=== PATIENT | female | born 1960 | race Caucasian/White ===

== ENCOUNTER → 2016-10-24 | Outpatient (CLI) | payer BC ==
[~2016-10-24] VITALS: Ht 165.1 cm; Wt 68.9 kg
[~2016-10-24] MED LIST: ACID CONTROL150 MG; ACID CONTROL20 MG; CELEXA20 MG PO; CIPROFLOXACIN500 M3 PO; FLEXERIL PO; FLONASE 0.05%50 MCG NASAL; HYDROCODON-ACE1 EAC5 PO; HYDROCODONE-AP1 EAC6 PO; LAMISIL250 MG PO; MOBIC15 MG; MOBIC15 MG PO; NORCO 10-325 T1 EACH PO; NORCO 5-325 TA1 EACH PO; PEPCID20 MG PO; TUSSIONEX PENN473 ML PO; ZANAFLEX4 MG PO; ZOFRAN ODT4 MG PO; ZOFRAN4 MG PO; ZPAK PO; [UNRECOGNIZED DRUG - REMARK]
--- NOTE | ~2016-10-24 | HPC ---
[facility] [address] [place] [address] PAIN MANAGEMENT CONSULTATION Name: VON ALVARENGA Room #: REG [facility] [id number] Admission: 10/24/16 Attend Phys: Antonio Hicks MD Discharge: Date of : 60 Report #: [id number] THIS REPORT FOR: //name// CC: Seamus Coreas DO Antonio Hicks DATE OF SERVICE: 10/24/2016 DATE OF REGISTRATION: 10/24/2016 Followup visit for chronic back pain. The patient returns to pain clinic today for renewal of medication. I provided her under terms of an opioid agreement with a small amount of hydrocodone 10/325. She takes an average of 2 tablets per day. 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. Without it she does not feel that she would be able to do so. The pain in her back becomes too incapacitating. She has no significant side effects. She reports that she safeguards her medication carefully and we had a discussion again today about the opioid crisis in [place]. Today, she reports her pain without medication is an 8/10, chronic tingling, aching pressure across her low back. She also has pain in her upper back and into her right arm. She is able to reduce this substantially with the use of her medication. Blood pressure is 131/79, heart rate 60, respirations 15. She is 5 feet 5 inches with a BMI of 25.3. Her affect is pleasant. She has tenderness throughout the lumbosacral spine. She has some mild limitations in flexion, extension, rotational movements. Straight leg raising reproduces an L5 distribution pain once again at the knees. Sensation and reflexes are normal. IMPRESSION: 1. Degenerative disk disease of the lumbar spine, L4-L5. Lumbar radiculopathy. 2. Lumbar spondylosis with axial back pain. 3. Management of high risk medication. PLAN: 1. Urine drug screen was performed today. It has been sometimes. This will check that. 2. We reviewed the terms of our opioid agreement. 3. I provided her with 3 months' worth of medication with important discussion [address] [address] PAIN MANAGEMENT CONSULTATION Name: KATIANA ALVARENGABetina Coates Room #: REG KIRAN Castañeda#: [id number] Admission: 10/24/16 Attend Phys: Antonio Hicks MD Discharge: Date of : 60 Report #: [id number] about safeguarding medications to make sure that there is no diversion. 4. Follow up with the pain clinic as needed. <ELECTRONICALLY SIGNED> By: Antonio Hicks MD 10/26/16 1329 1243 1355 Antonio Hicks MD /nt
[2016-10-24 11:02] VITALS: BP 131/79
[2016-10-28 15:05] LABS: EER PAIN MGT INTERP FINAL (())
== END ==
LOC: PAIN 07:27
PROVIDERS: Anesthesiology Pain Medicine
DX: M47.26 Other spondylosis with radiculopathy, lumbar region (principal)

== ENCOUNTER → 2016-11-12 | Outpatient (CLI) | payer BC | LOC: RAD 16:39 | DX: R05 Cough (principal) ==

== ENCOUNTER → 2017-01-17 | Outpatient (CLI) | payer BC ==
[~2017-01-17] VITALS: Ht 165.1 cm; Wt 67.6 kg
--- NOTE | ~2017-01-17 | HPC ---
[address] [address] PAIN MANAGEMENT CONSULTATION Name: VON ALVARENGA Room #: REG KIRAN Leslie.#: [id number] Admission: 01/17/17 Attend Phys: Antonio Hicks MD Discharge: Date of : 60 Report #: [id number] THIS REPORT FOR: //name// CC: Seamus Coreas DO Antonio Hicks DATE OF SERVICE: 01/17/2017 Followup visit for chronic back pain with radiculopathy in right lower extremity, right elbow pain with tendinitis. The patient returns to the pain clinic today and is complaining primarily of her chronic back pain with radiculopathy, but also complaining of pain in the lateral epicondyle region. 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 She saw Dr. Coreas recently because of elbow pain and he provided her with a medication prescriptions. She is already on an opioid agreement with our clinic. She was last seen in October. The signed agreement was discussed in detail. She understands that she should receive medication from only 1 physician. The urine drug screen was performed that day, which was appropriate for medications provided by our clinic. We were unaware, however, that she was taking alprazolam which she also receives from Dr. Coreas. We discussed use of opioids in treatment of chronic intractable pain. We agreed that there are plenty of patients who benefit from these medications and do so at low risk. 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 People who work manual jobs are risk of having ongoing chronic aches and pains. We talked about what methods do provide relief from no short of medications. She should use , range of motion exercises and cautious use of anti-inflammatory drugs in addition to her use of opioid medication. I reviewed her opioid risk score, it is 1. This puts her in a very low risk of having any sort of drug abuse issues. Her impact pain score is 48/70. PHYSICAL EXAMINATION: She is in her work clothes, pleasant, alert and oriented. She does not show any signs of overmedication, depression or anxiety. Her blood pressure 130/74, heart rate 76, respirations 14. She is 5 feet 5 inches with BMI of 24.8. She has a positive straight leg raising discomfort on the right. She has tenderness over the lateral epicondyle consistent with lateral epicondylitis. IMPRESSION: [facility] [address] [place] [address] PAIN MANAGEMENT CONSULTATION Name: VON ALVARENGA Room #: REG KIRAN Castañeda#: [id number] Admission: 01/17/17 Attend Phys: Antonio Hicks MD Discharge: Date of : 60 Report #: [id number] 1. Degenerative disk of the lumbar spine, L4-L5 with lumbar radiculopathy on the right. 2. Right elbow pain with lateral epicondylitis. 3. Management of high risk medication. RECOMMENDATIONS: Extensively come see us. She is only taking [address] Coreas is prescribing her other medications. I would be perfectly fine with her seeing her primary care physician for all of her medical needs and will be happy to follow up if necessary. He can provide medication for her as we do on 3-month intervals. She can be seen by our clinic once a month. This will be fine and actually more favorable for the patient. If Dr. Coreas is unhappy with that approach, we will be glad to continue seeing her at 3-month intervals and she can follow her opioid management prescribing program. Her morphine milligram equivalent daily dose on a p.r.n. basis is 20 MME. Followup visit is either with Dr. Coreas or with us in 3 months. By: [id number] Antonio Hicks MD /nt
[2017-01-17 08:12] VITALS: BP 130/74
== END ==
LOC: PAIN 06:51
DX: M77.11 Lateral epicondylitis, right elbow (principal); M54.16 Radiculopathy, lumbar region; I10 Essential (primary) hypertension; F32.9 Major depressive disorder, single episode, unspecified

== ENCOUNTER 2017-04-26 11:11 | Inpatient (IN) | payer BC ==
[~2017-04-26] VITALS: Ht 167.6 cm; Wt 68.9 kg
[2017-04-26] VITALS (16 sets, daily range): BP systolic 96–173; BP diastolic 53–83
--- NOTE | ~2017-04-26 | EKG ---
[address] [place] [address] ELECTROCARDIOGRAM REPORT Name: VON ALVARENGA Room #: 314-P ADM IN M.R.#: [id number] Admission: 04/26/17 Attend Phys: Sid Mead MD Discharge: Date of : 60 Report #: [id number] THIS REPORT FOR: //name// [facility] ED Test Date: 2017-04-26 Test Time: 11:32:42 Pat Name: VON ALVARENGA Department: Room: [facility] Gender: F Hedis Analyst: LUIS : 1960 Requested By: Lang Gutierrez Order Number: [id number] MD: Collins Hagen Measurements Intervals [place] Rate: 66 P: 55 WI: 153 QRS: 21 QRSD: 94 T: 60 QT: 395 QTc: 414 Interpretive Statements Sinus rhythm No significant abnormality Compared to ECG 04/16/2014 23:05:15 No significant change was found Electronically Signed On 04-28-2017 13:12:52 CDT by Collins Hagen [email or web address] <ELECTRONICALLY SIGNED> By: Collins Hagen MD, [facility] 04/28/17 1312 1132 113 Collins Hagen MD, [facility] /EPI
--- NOTE | ~2017-04-26 | 2DMMODE ---
[facility] [address] [place] [address] 2 D/M-MODE ECHOCARDIOGRAM Name: VON ALVARENGA Room #: 314-P [facility] IN [facility]#: [id number] Admission: 04/26/17 Attend Phys: Anca Cho Discharge: Date of : 60 Date of Service: 04/27/171950 Report #: [id number] THIS REPORT FOR: //name// APPROVED REPORT Study performed: 04/27/2017 08:58:59 EXAM: Comprehensive 2D, Doppler, and color-flow Echocardiogram Patient Location: Bedside Room #: 247 Status: on-call Other Information Study Quality: Good Indications CVA/TIA Echo Enhancing Agent Indication: Rule out Shunt Agent(s) / Amount(s) Used: Agitated Saline cc 2D Dimensions LVEF(%): 48.14 (>50%) IVSd: 9.92 (7-11mm) LVOT Diam: 19.00 (18-24mm) LVDd: 39.78 mm PWd: 9.57 (7-11mm) Ascending Ao: 27.46 (22-36mm) LVDs: 30.29 (25-40mm) Aortic Root: 22.56 mm Zimmer's LVEF: 48.14 % M-Mode Dimensions Left Atrium: 19.00 (25-40mm) Volumes Left Atrial Volume (Systole) Single Plane 4CH: 29.45 mL Single Plane 2CH: 29.50 mL Aortic Valve AoV Peak Dru.: 1.47 m/s AO Peak Gr.: 11.09 mmHg LVOT Max P.11 mmHg LVOT Max V: 1.01 m/s AI Vmax: 4.78 m/s AI [place]: 1.67 m/s2 AI PHT: 845.42 ms [facility] [place] [address] 2 D/M-MODE ECHOCARDIOGRAM Name: VON ALVARENGA Room #: 314-P [facility] IN .R.#: [id number] Admission: 04/26/17 Attend Phys: Anca Cho Discharge: Date of : 60 Date of Service: 04/27/171950 Report #: [id number] Mitral Valve E/A Ratio: 1.3 MV Decel. Time: 199.58 ms MV E Max Dru.: 0.97 m/s MV A Dru.: 0.77 m/s MV PHT: 57.88 ms IVRT: 50.75 ms Pulmonary Valve PV Peak Dru.: 0.76 m/s PV Peak Gr.: 2.31 mmHg Pulmonary Vein P Vein S: 0.52 m/s P Vein A: 0.20 m/s P Vein D: 0.35 m/s P Vein A Dur.: 138.4 msec P Vein S/D Ratio: 1.49 Tricuspid Valve RAP Estimate: 5.00 mmHg Left Ventricle The left ventricle is normal size. There is normal LV segmental wall motion. There is normal left ventricular wall thickness. Left ventricular systolic function is normal. The left ventricular ejection fraction is within the normal range. The left ventricular diastolic function is normal. Right Ventricle The right ventricle is normal size. The right ventricular systolic function is normal. Atria The left atrium size is normal. The right atrium size is normal. Aortic Valve The aortic valve is normal in structure. Trace to mild aortic regurgitation. There is no aortic valvular stenosis. Mitral Valve The mitral valve is normal in structure. Trace mitral regurgitation. No evidence of mitral valve stenosis. Tricuspid Valve The tricuspid valve is normal in structure. There is no tricuspid [place] [address] 2 D/M-MODE ECHOCARDIOGRAM Name: KATIANA ALVARENGABetina Coates Room #: 314-P [facility] IN ..#: [id number] Admission: 04/26/17 Attend Phys: Anca Cho Discharge: Date of : 60 Date of Service: 04/27/171950 Report #: [id number] Pulmonic Valve The pulmonary valve is normal in structure. Trace to mild pulmonic regurgitation. Great Vessels The aortic root is normal in size. IVC is normal in size and collapses with >50% inspiration Pericardium There is no pericardial effusion. <Conclusion> The left ventricle is normal size. There is normal left ventricular wall thickness. Left ventricular systolic function is normal. The left ventricular ejection fraction is within the normal range. The left ventricular diastolic function is normal. The right ventricle is normal size. The left atrium size is normal. The right atrium size is normal. The aortic valve is normal in structure. Trace mitral regurgitation. There is no pericardial effusion. There is no tricuspid valve regurgitation noted. <ELECTRONICALLY SIGNED> By: Uziel Dixon MD, FACC 04/27/171950 50 50 Uziel Dixon MD, FACC /INF
[~2017-04-26 11:11] MED LIST changes: +COMPAZINE10 MG PO
[2017-04-26 11:26] LABS: HEMATOCRIT 37.4 % (37.0-47.0); HEMOGLOBIN 12.8 gm/dL (12.0-15.0); MCH 29.6 pg (26.0-34.0); MCHC 34.3 g/dL (28.0-37.0); MCV 86.2 fL (80.0-100.0); RBC 4.34 mil/uL (4.20-5.00); RDW 13.1 % (10.5-14.5); WBC 5.3 thou/uL (4.0-11.0)
[2017-04-26 11:39] LABS: ANION GAP 6 mmol/L (7-16); BUN 21 mg/dL (7-18); CALCIUM 9.4 mg/dL (8.5-10.1); CHLORIDE 107 mmol/L (98-107); CO2 31 mmol/L (21-32); CREATININE 0.8 mg/dL (0.6-1.0); GLUCOSE 106 mg/dL (74-106); POTASSIUM 3.5 mmol/L (3.5-5.1); SODIUM 144 mmol/L (136-145)
[2017-04-26 11:42] LABS: APTT 25.9 Seconds (24.5-32.8); PROTIME 10.5 Seconds (9.3-11.4)
[2017-04-26 11:46] LABS: TROPONIN-I < 0.04 ng/mL (<0.04-0.07)
[2017-04-27] VITALS (15 sets, daily range): BP systolic 90–147; BP diastolic 45–79
[2017-04-27 04:56] LABS: HEMATOCRIT 35.4 % (37.0-47.0); HEMOGLOBIN 12.2 gm/dL (12.0-15.0); MCH 29.5 pg (26.0-34.0); MCHC 34.5 g/dL (28.0-37.0); MCV 85.6 fL (80.0-100.0); RBC 4.14 mil/uL (4.20-5.00); RDW 12.6 % (10.5-14.5)
[2017-04-27 05:22] LABS: ANION GAP 9 mmol/L (7-16); BUN 14 mg/dL (7-18); CALCIUM 8.2 mg/dL (8.5-10.1); CHLORIDE 109 mmol/L (98-107); CHOLESTEROL 228 mg/dL (<200); CO2 26 mmol/L (21-32); CREATININE 0.8 mg/dL (0.6-1.0); GLUCOSE 84 mg/dL (74-106); HDL CHOLESTEROL 35 mg/dL (>40); LDL CHOLESTEROL 157 mg/dL (<100); SODIUM 144 mmol/L (136-145); TC:HDL 6.5 Ratio (Not establshd); TRIGLYCERIDE 183 mg/dL (<150); VLDL 37 mg/dL (<40)
[2017-04-27 05:36] LABS: SERUM ASSESSMENT Clear
[2017-04-28 00:05] LABS: GLYCOHEMOGLOBIN (HGB A1C) 4.9 % (4.8-5.6)
[2017-04-28 03:34] VITALS: BP 155/87
[2017-04-28 08:00] VITALS: BP 122/73
[2017-04-28] MEDS ORDERED: ASPIR 8181 MG PO (13:04)
[2017-04-28] MEDS ORDERED: ATORVASTATIN CA40 MG PO (13:04)
[2017-04-28 13:09] VITALS: BP 122/73
[2017-04-28] MEDS ORDERED: TYLENOL325 MG PO (15:21)
[2017-04-28] MEDS ORDERED: IBUPROFEN 800800 M1 PO (15:23)
[2017-04-30 12:10] LABS: ANTITHROMBIN III 86 % (75-135); DIL. RUSSELL VIPER VENOM 45.3 sec (0.0-47.0)
== END 2017-04-28 15:44 | disposition home or self-care (01) | DRG 63 ==
LOC: ER 11:11 → EROBS 12:51 → ICU 14:44 → 3N 04-27 15:25
PROVIDERS: Emergency Medicine; Hospitalist; Psychiatry & Neurology Neurology
DX: I63.9 Cerebral infarction, unspecified (principal); I10 Essential (primary) hypertension; G89.29 Other chronic pain; G43.909 Migraine, unspecified, not intractable, without status migrainosus; M54.89 Other dorsalgia; R47.81 Slurred speech; R29.810 Facial weakness; F32.9 Major depressive disorder, single episode, unspecified; Z88.0 Allergy status to penicillin; Z79.899 Other long term (current) drug therapy; Z90.49 Acquired absence of other specified parts of digestive tract
CPT/HCPCS: 10078; 10096

== ENCOUNTER 2017-05-01 12:03 | Emergency (ER) | payer BC ==
[~2017-05-01] VITALS: Ht 165.1 cm; Wt 67.1 kg
--- NOTE | ~2017-05-01 | EKG ---
[address] [address] ELECTROCARDIOGRAM REPORT Name: VON ALVARENGA [facility]: [facility] [id number] Admission: 05/01/17 Attend Phys: Discharge: 05/01/17 Date of : 60 Report #: [id number] THIS REPORT FOR: //name// [facility] ED Test Date: 2017-05-01 Test Time: 12:26:32 Pat Name: VON ALVARENGA Department: Room: Gender: F Philosophy Specialist: HOLLAND : 1960 Requested By: Willy Gastelum Order Number: [id number] MD: Dayne Sandra Measurements Intervals [place] Rate: 58 P: 42 [place]: 138 QRS: 13 QRSD: 91 T: 48 QT: 438 QTc: 431 Interpretive Statements Sinus rhythm Compared to ECG 04/26/2017 11:32:42 No significant changes Electronically Signed On 05-03-2017 16:17:12 CDT by Dayne Sandra [email or web address] <ELECTRONICALLY SIGNED> By: Dayne Sandra MD 05/03/17 1617 1226 1226 MD TERESITA Vides
[~2017-05-01 12:03] MED LIST changes: +ASPIR 8181 MG PO; +ATORVASTATIN CA40 MG PO; +IBUPROFEN 800800 M1 PO; +TYLENOL325 MG PO
[2017-05-01] MEDS ORDERED: MOBIC15 MG PO (12:14)
[2017-05-01 12:19] LABS: ABSOLUTE NEUTROPHILS 3.7 thou/uL (1.4-8.2); BASOPHILS 0.3 % (0.0-2.0); EOSINOPHILS 3.3 % (0.0-3.0); HEMATOCRIT 35.3 % (37.0-47.0); HEMOGLOBIN 12.2 gm/dL (12.0-15.0); LYMPHOCYTES 32.3 % (24.0-44.0); MANUAL DIFF NO; MCH 29.3 pg (26.0-34.0); MCHC 34.5 g/dL (28.0-37.0); MCV 84.8 fL (80.0-100.0); MONOCYTES 6.3 % (1.0-8.0); PLATELET COUNT 139 thou/uL (150-400); POLYS 57.8 % (36.0-66.0); RBC 4.16 mil/uL (4.20-5.00); RDW 12.9 % (10.5-14.5); WBC 6.3 thou/uL (4.0-11.0)
[2017-05-01 12:22] LABS: ANION GAP 6 mmol/L (7-16); BUN 25 mg/dL (7-18); CALCIUM 9.1 mg/dL (8.5-10.1); CHLORIDE 107 mmol/L (98-107); CO2 30 mmol/L (21-32); CREATININE 0.8 mg/dL (0.6-1.0); GLUCOSE 75 mg/dL (74-106); POTASSIUM 3.9 mmol/L (3.5-5.1); SODIUM 143 mmol/L (136-145)
[2017-05-01 12:27] LABS: APTT 25.1 Seconds (24.5-32.8); INR 1.1; PROTIME 10.9 Seconds (9.3-11.4)
[2017-05-01 12:30] LABS: TROPONIN-I < 0.04 ng/mL (<0.04-0.07)
== END 2017-05-01 15:07 | disposition home or self-care (01) ==
LOC: ER 12:03
PROVIDERS: Physician Assistant
DX: G24.02 Drug induced acute dystonia (principal); F32.9 Major depressive disorder, single episode, unspecified; I10 Essential (primary) hypertension; E78.00 Pure hypercholesterolemia, unspecified; M54.5 Low back pain; Z90.49 Acquired absence of other specified parts of digestive tract; Z79.82 Long term (current) use of aspirin; Z88.0 Allergy status to penicillin

== ENCOUNTER → 2017-05-16 | Outpatient (CLI) | payer BC ==
[~2017-05-16] VITALS: Ht 165.1 cm; Wt 67.6 kg
--- NOTE | ~2017-05-16 | HPC ---
[facility] [address] [place] [address] PAIN MANAGEMENT CONSULTATION Name: VON ALVARENGA Room #: REG KIRAN Castañeda#: [id number] Admission: 05/16/17 Attend Phys: Antonio Hicks MD Discharge: Date of : 60 Report #: [id number] THIS REPORT FOR: //name// CC: Seamus Coreas DO Antonio Hicks DATE OF SERVICE: 05/16/2017 Followup visit for chronic low back pain. The patient returns to pain clinic today in followup. She was last seen in the clinic on 04/16/2017 by my partner, Dr. Seamus Kwon. She has chronic back pain for which we have been providing a small dose of hydrocodone and tizanidine. 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 She does not miss much work and medication has helped her remain active. She has had no significant side effects from her medication, has been on time for all appointments. Since she was last seen, she reports that she was seen in the Emergency Room and she was having symptoms suggestive of a stroke. She had weakness in her left arm. After a CT scan, she was given TPA and whatever symptoms she has have completely resolved. She was supposed to follow up with the neurologist but has not done so. I followed up with an exam today. Today, she says that she has no lasting or lingering symptoms. Her only blood thinner is a single aspirin 81 mg daily. Her only symptom today other than her low back pain scored at an 8/10, is gentle bifrontal headache. Her back pain is exacerbated by movement. She has some mild right leg pain as well. PHYSICAL EXAMINATION: She is pleasant, alert and oriented. There are no obvious signs of facial weakness and there is no slurring of speech. Blood pressure is 139/64, heart rate 66, respirations 14, BMI is 24.8. She is able to easily move from a sitting to standing position and has no features of antalgic movement with her gait. Her stride is normal. Examination of the head reveals pupils to be equal, round reactive to light. EOMs are intact. Mucous membranes are moist. Examination of the cranial nerves 2 through 12 was performed and there are no obvious abnormalities. There is no facial drooping. She is able to wrinkle her forehead, smile without any asymmetry. Range of her neck is excellent. There is no tenderness in her neck. Examination of the upper and lower extremities reveals there is full strength in all muscle groups tested in the right and left with no evidence of weakness. [address] [address] PAIN MANAGEMENT CONSULTATION Name: VON ALVARENGA Room #: REG [facility] Garry#: [id number] Admission: 05/16/17 Attend Phys: Antonio Hicks MD Discharge: Date of : 60 Report #: [id number] IMPRESSION: 1. Chronic back pain with evidence of mild spondylosis. 2. Recent cerebrovascular accident or transient ischemic attack. She has no residual neurologic symptoms at this time. 3. Management of a low dose high risk narcotic medication. She is currently receiving excellent analgesia improving her day-to-day function. She has no significant side effects and safeguards all medication. PLAN: 1. I have renewed her hydrocodone 10/325, one b.i.d., #60 tablets and released a prescription for 4 and 8 weeks. Importance of safeguarding medications discussed. 2. Follow up with Dr. Coreas, primary care physician for all other medical issues including this change in ischemic attack. 3. She has an appointment with the neurologist. I have encouraged her to keep the appointment, although I see no evidence of lasting neurologic injury at this time. <ELECTRONICALLY SIGNED> By: Antonio Hicks MD 05/20/17 1716 1548 1609 Antonio Hicks MD /nt
[2017-05-16 11:10] VITALS: BP 139/64
== END | disposition home or self-care (01) ==
LOC: PAIN 07:46
DX: M47.896 Other spondylosis, lumbar region (principal); G89.29 Other chronic pain; F11.20 Opioid dependence, uncomplicated; I63.9 Cerebral infarction, unspecified; Z87.891 Personal history of nicotine dependence; Z88.0 Allergy status to penicillin; Z79.82 Long term (current) use of aspirin; Z79.899 Other long term (current) drug therapy

== ENCOUNTER → 2017-11-14 | Outpatient (CLI) | payer BC ==
[~2017-11-14] VITALS: Ht 162.6 cm; Wt 63.5 kg
[~2017-11-14] MED LIST changes: +BUTALB-APAP-CA1 EACH PO; +TOPAMAX 25 MG T25 M1 PO
--- NOTE | ~2017-11-14 | HPC ---
[facility] [address] [facility] [place] [address] PAIN MANAGEMENT CONSULTATION Name: VON ALVARENGA Room #: REG LEOLACrissy Leslie.#: [id number] Admission: 11/14/17 Attend Phys: Antonio Hicks MD Discharge: Date of : 60 Report #: [id number] THIS REPORT FOR: //name// CC: Seamus Hicks DATE OF SERVICE: 11/14/2017 Followup visit for chronic intractable low back pain and osteoarthritis. The patient returns to pain clinic today for renewal of her pain medication. She is on medications under terms of written opioid agreement. She uses hydrocodone 10/325 two-three tablets a day depending on activity. She is quite active. 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 She was previously at [employer], but has changed her job and is now at [employer]. It sounds as though her work is less strenuous and I think that is good, she has had a lot of underlying back pain for a number of years and has worked hard to remain active. We had a discussion today about how important work is as a diversion and distraction, she agrees with that. Although, her pain impact scores are high, she pushes through, she is fairly stoic. She has had a recent urine drug screen performed within the last 15 months and is appropriate for medications provided through our clinic. The patient is a former tobacco user, but does not drink alcohol. Her opioid risk tool is evaluated earlier this year and her risk is low at a total of 1. PHYSICAL EXAMINATION: She is pleasant, alert and oriented. She shows no signs of overmedication, depression or anxiety. Her blood pressure is 161/80, heart rate 62, respirations 14, BMI is 24.0. She has bilateral arm tenderness today and she has pain and tenderness bilaterally at the knees. She has pain across her low back with some mild radiation into the right leg, which may be consistent with radiculopathy, although may also be part of her osteoarthritis. IMPRESSION: 1. Chronic low back pain with spondylosis. 2. Osteoarthritis, bilateral knees, right worse than left. 3. Management of high risk medications under terms of written opioid agreement. I renewed her medications for 3 months. Plan is for her to follow up at that time. We discussed the opioid crisis in [facility], her responsibilities as [address] [address] PAIN MANAGEMENT CONSULTATION Name: VON ALVARENGA Room #: REG Crissy Castañeda#: [id number] Admission: 11/14/17 Attend Phys: Antonio Hicks MD Discharge: Date of : 60 Report #: [id number] written in the agreement the CDC guidelines. Urine drug testing will be performed as necessary or we may use a buccal test. <ELECTRONICALLY SIGNED> By: Antonio Hicks MD 12/18/17 1640 1243 1359 Antonio Hicks MD /nt
[2017-11-14 10:52] VITALS: BP 161/80
== END ==
LOC: PAIN 06:49
DX: M47.896 Other spondylosis, lumbar region (principal); M17.0 Bilateral primary osteoarthritis of knee; Z79.899 Other long term (current) drug therapy; F11.90 Opioid use, unspecified, uncomplicated

== ENCOUNTER → 2018-02-06 | Outpatient (CLI) | payer BC, OTHER ==
[~2018-02-06] VITALS: Ht 165.1 cm; Wt 65.7 kg
--- NOTE | ~2018-02-06 | HPC ---
[facility] [address] [place] [address] PAIN MANAGEMENT CONSULTATION Name: VON ALVARENGA Room #: REG [facility] Anuj.#: [id number] Admission: 02/06/18 Attend Phys: Antonio Hicks MD Discharge: Date of : 60 Report #: [id number] THIS REPORT FOR: //name// CC: Seamus Hicks DATE OF SERVICE: 02/06/2018 Followup visit for management of chronic low back pain. The patient is a longstanding patient in the clinic who is here today for low back pain and osteoarthritis. 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 Medications have been helpful. She is grateful for them. Denies any significant side effects. Her back has done well, although she was in the hospital for 4 days due to a migraine headache. She was seen by Neurology. They took her off her opioids for a short time and then renewed them. I do not believe that she has rebound headaches. Today, she reports that her pain with medication is an 8/10. Pain is mostly across her low back. She has no radicular features at this time. She is able to work with this pain and has shown good management skills. PHYSICAL EXAMINATION: GENERAL: She is pleasant, alert and oriented today. VITAL SIGNS: Blood pressure is 152/74, pulse is 76, respirations 16, O2 sats 100%. Her BMI is 24.1. She is able to move easily from sitting to standing position. Her gait is stable. She is not a fall risk. She has pain with all range of motion, flexion and extension, [id number] and lateral tilt. Pain radiates a bit into the right leg as it has in the past, but this does not appear to be radiculopathy. She has pain bilaterally in the knees with localized tenderness, worse on the right than the left. Mild crepitus is noted in that joint. There is no effusion. IMPRESSION: 1. Chronic low back pain with spondylosis. No evidence of radiculopathy. 2. Osteoarthritis, bilateral knees, right worse than left. 3. Management of opioid medications under terms of written opioid agreement. She is on a modest dose of hydrocodone taking no more than 2-3 tablets a day, the majority of time taking 2. After a long day, I have given her a third tablet. With the medications, she is able to work. She has tizanidine 4 mg available for muscle spasm, [place] [address] PAIN MANAGEMENT CONSULTATION Name: VON ALVARENGA Room #: REG [facility] Anuj.#: [id number] Admission: 02/06/18 Attend Phys: Antonio Hicks MD Discharge: Date of : 60 Report #: [id number] She takes it cautiously due to side effects. I reviewed her previous drug screen. It was appropriate for the hydrocodone provided. She is also taking citalopram. She had in the past taking alprazolam and a combination of benzodiazepine and opioid risks were addressed with her today. She was given prescriptions for today release and in 4 and 8 weeks for hydrocodone 10/325 and tizanidine 4 mg. Urine drug screen will be performed in the future as necessary. By: [id number] Antonio Hicks MD /nt
[2018-02-06 11:09] VITALS: BP 152/74
== END ==
LOC: PAIN 10:54
DX: M47.896 Other spondylosis, lumbar region (principal); M17.0 Bilateral primary osteoarthritis of knee; F11.90 Opioid use, unspecified, uncomplicated

== ENCOUNTER 2018-02-08 13:49 | Emergency (ER) | payer BC, OTHER ==
[~2018-02-08] VITALS: Ht 165.1 cm; Wt 65.3 kg
[~2018-02-08 13:49] MED LIST changes: -BUTALB-APAP-CA1 EACH PO
[2018-02-08 15:56] LABS: ABSOLUTE NEUTROPHILS 3.2 thou/uL (1.4-8.2); BASOPHILS 0.6 % (0.0-2.0); EOSINOPHILS 3.1 % (0.0-3.0); HEMATOCRIT 36.1 % (37.0-47.0); HEMOGLOBIN 12.4 gm/dL (12.0-15.0); LYMPHOCYTES 31.5 % (24.0-44.0); MCHC 34.3 g/dL (28.0-37.0); MCV 84.5 fL (80.0-100.0); PLATELET COUNT 175 thou/uL (150-400); POLYS 57.8 % (36.0-66.0); RBC 4.27 mil/uL (4.20-5.00); RDW 13.9 % (10.5-14.5); WBC 5.6 thou/uL (4.0-11.0)
[2018-02-08 16:08] LABS: CALCIUM 9.1 mg/dL (8.5-10.1); CREATININE 0.9 mg/dL (0.6-1.0); POTASSIUM 3.9 mmol/L (3.5-5.1)
[2018-02-08] MEDS ORDERED: BUTALB-APAP-CA1 EACH PO (16:16)
== END 2018-02-08 16:36 | disposition home or self-care (01) ==
LOC: ER 13:49
PROVIDERS: Nurse Practitioner Family
DX: G43.909 Migraine, unspecified, not intractable, without status migrainosus (principal); M54.5 Low back pain; G89.29 Other chronic pain; F32.9 Major depressive disorder, single episode, unspecified; I10 Essential (primary) hypertension; E78.5 Hyperlipidemia, unspecified; Z88.0 Allergy status to penicillin; Z87.891 Personal history of nicotine dependence

== ENCOUNTER → 2018-05-05 | Outpatient (CLI) | payer BC, OTHER ==
[~2018-05-05] VITALS: Ht 162.6 cm; Wt 66.0 kg
[~2018-05-05] MED LIST changes: +BUTALB-APAP-CA1 EACH PO
--- NOTE | ~2018-05-05 | HPC ---
[facility] [place] [address] PAIN MANAGEMENT CONSULTATION Name: VON ALVARENGA [id number] Admission: 05/05/18 Attend Phys: Antonio Hicks MD Discharge: Date of : 60 Report #: [id number] THIS REPORT FOR: //name// CC: Seamus Nails DATE OF SERVICE: 05/05/2018 Followup visit for chronic low back pain. The patient returns to pain clinic today for medication management. 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 Without medication she does not feel that she would be able to continue her work. She is quite grateful for the pain relief that she receives and she denies any significant side effects. She has had no headache since her last visit; she was hospitalized for a period of time due to the severe migraine. She had been taking butalbital, but has been holding back on that medication recently. Pain score varies depending on activities. When she is not working her pain can be as low as a 1. On some days, if she does not have medication on board, her pain is a 10/10. Risk assessment tool has been performed, she is at low risk for any addiction. Functional assessment tool 48/70 shows that there is moderate interference in all activities of daily living with her pain untreated. She denies use of tobacco and alcohol. She is very active on the job, does not exercise specifically at home. PHYSICAL EXAMINATION: She is a ifeoma female, pleasant, alert and oriented, without signs of depression, anxiety or overmedication. Her BMI is 24.9. Blood pressure 129/62, heart rate 63, respirations 16, O2 sat 100%. She is able to move from sitting to standing position and ambulate without difficulty. She has some pain with her back in the lumbosacral segment with all movements including flexion, extension, pryu-as-zndb rotation and tilt. Pain has some right leg radiation with straight leg raising, but this is not significant. IMPRESSION: 1. Chronic low back pain with spondylosis. Perhaps some mild radicular symptoms noted today. 2. Osteoarthritis, bilateral knees, right worse than left. 3. Management of opioid medications with a written opioid agreement. [address] [address] PAIN MANAGEMENT CONSULTATION Name: VON ALVARENGA Room #: REG [facility] Anuj.#: [id number] Admission: 05/05/18 Attend Phys: Antonio Hicks MD Discharge: Date of : 60 Report #: [id number] PLAN: I have renewed her hydrocodone 10/325 at 75 tablets per month so she can take 2-3 tablets per day. We talked about safeguarding medication. I reviewed the CDC guideline. Her current MME is 25. Followup visit planned in the pain clinic in 3 months. By: [id number] MD yesica Jamil
[2018-05-05 14:14] VITALS: BP 129/62
== END ==
LOC: PAIN 06:36
DX: M47.26 Other spondylosis with radiculopathy, lumbar region (principal); M17.0 Bilateral primary osteoarthritis of knee; G89.29 Other chronic pain; Z79.891 Long term (current) use of opiate analgesic

== ENCOUNTER → 2018-07-30 | Outpatient (CLI) | payer BC, OTHER ==
[~2018-07-30] VITALS: Ht 165.1 cm; Wt 66.5 kg
--- NOTE | ~2018-07-30 | HPC ---
[facility] [address] [place] [address] PAIN MANAGEMENT CONSULTATION Name: VON ALVARENGA Room #: REG [facility] Anuj.#: [id number] Admission: 07/30/18 Attend Phys: Antonio Hicks MD Discharge: Date of : 60 Report #: [id number] THIS REPORT FOR: //name// CC: Aditya Hicks REASON FOR CONSULTATION: Followup visit for chronic low back pain with spondylosis and mild radiculopathy, osteoarthritis of the knees. HISTORY OF PRESENT ILLNESS: This is a followup visit for the patient who I provide medication to help her continue working. 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 She is working 40-hour weeks. The 8-hour shifts are challenging and difficult for her, but she does it. She does not complain excessively to us. She simply wants to get through her day. She uses her medication carefully and cautiously to allow her to work more effectively. She denies any significant side effects. She has tried to treat her pain by other measures including exercise, heat, ice and nonsteroidal anti-inflammatory drugs. She has had limited response. Her current daily dose is hydrocodone 10/325. She is allowed 75 tablets per month. That is 2-1/2 tablets or 25 morphine milligram equivalent per day. She has shown no misuse or abuse. She is grateful for the relief that she receives. She carefully safeguards her medication. PHYSICAL EXAMINATION: GENERAL: Pleasant female. VITAL SIGNS: Blood pressure 137/63, heart rate 63, respirations 16. BMI is 24.4. She is able to move from sitting to standing position, but has pain with forward flexion and extension of the low back. She has tenderness across the lumbosacral segment. Straight leg raising reproduces mild pain into the right leg. She has tenderness around the left knee without effusion. There is some mild crepitus there. IMPRESSION: 1. Chronic low back pain with spondylosis and mild radicular features. 2. Osteoarthritis. Today, the left knee is more prominent than other joints, but she has pain in the other joints including the knees and hips. 3. Management of high risk medications under terms of written opioid agreement. PLAN: Medications renewed. The plan for her is to follow up with us in 3 months. We have talked about the importance of safeguarding all medications. [address] [address] PAIN MANAGEMENT CONSULTATION Name: VON ALVARENGA ZACHERY Room #: REG KIRAN Castañeda#: [id number] Admission: 07/30/18 Attend Phys: Antonio Hicks MD Discharge: Date of : 60 Report #: [id number] Checked her most recent urine drug screen from 2016, which was appropriate for all medications provided. By: [id number] Antonio Hicks MD /nt
[2018-07-30 13:33] VITALS: BP 137/63
== END ==
LOC: PAIN 06:55
DX: M47.26 Other spondylosis with radiculopathy, lumbar region (principal); M17.0 Bilateral primary osteoarthritis of knee; Z79.891 Long term (current) use of opiate analgesic

== ENCOUNTER 2018-08-03 12:49 | Emergency (ER) | payer BC, OTHER ==
[~2018-08-03] VITALS: Ht 165.1 cm; Wt 63.5 kg
[2018-08-03 13:37] LABS: ABSOLUTE NEUTROPHILS 3.9 thou/uL (1.4-8.2); BASOPHILS 0.7 % (0.0-2.0); HEMATOCRIT 44.7 % (37.0-47.0); HEMOGLOBIN 15.2 gm/dL (12.0-15.0); LYMPHOCYTES 31.7 % (24.0-44.0); MCH 29.3 pg (26.0-34.0); MCV 86.1 fL (80.0-100.0); MONOCYTES 5.8 % (1.0-8.0); PLATELET COUNT 199 thou/uL (150-400); POLYS 60.8 % (36.0-66.0); RDW 13.7 % (10.5-14.5); WBC 6.4 thou/uL (4.0-11.0)
[2018-08-03 13:40] LABS: CALCIUM 9.9 mg/dL (8.5-10.1); CREATININE 1.2 mg/dL (0.6-1.0); POTASSIUM 3.8 mmol/L (3.5-5.1)
[2018-08-03 13:47] LABS: ALBUMIN 4.9 g/dL (3.4-5.0); TOTAL BILIRUBIN 0.5 mg/dL (<0.1-1.0); TOTAL PROTEIN 8.5 g/dL (6.4-8.2)
[2018-08-03 13:51] LABS: APTT 26.5 Seconds (24.5-32.8); PROTIME 10.7 Seconds (9.3-11.4)
[2018-08-03 14:12] LABS: URINE BLOOD TRACE (Negative); URINE CLARITY CLEAR; URINE COLOR YELLOW; URINE GLUCOSE-RANDOM* NEGATIVE (Negative); URINE KETONES TRACE (Negative); URINE LEUKOCYTES TRACE (Negative); URINE NITRITE NEGATIVE (Negative); URINE PROTEIN (DIPSTICK) TRACE (Negative); URINE SPECIFIC GRAVITY >= 1.030 (1.005-1.035); URINE UROBILINOGEN 0.2 E.U./dl (0.2-1.0)
[2018-08-03 14:13] LABS: ICTOTEST (BILI CONFIRMATORY) Negative (Negative); URINE BILIRUBIN NEGATIVE (Negative)
== END 2018-08-03 15:30 | disposition home or self-care (01) ==
LOC: ER 12:49
PROVIDERS: Physician Assistant
DX: K62.5 Hemorrhage of anus and rectum (principal); K64.8 Other hemorrhoids; R10.11 Right upper quadrant pain; R10.31 Right lower quadrant pain; Z87.891 Personal history of nicotine dependence; Z88.0 Allergy status to penicillin; M54.5 Low back pain; G89.29 Other chronic pain; F32.9 Major depressive disorder, single episode, unspecified; I10 Essential (primary) hypertension; E78.5 Hyperlipidemia, unspecified; Z90.49 Acquired absence of other specified parts of digestive tract

== ENCOUNTER → 2018-10-27 | Outpatient (CLI) | payer BC, OTHER ==
[~2018-10-27] VITALS: Ht 165.1 cm; Wt 66.0 kg
[2018-10-27 14:47] VITALS: BP 153/80
--- NOTE | 2018-10-27 14:51 | NUR ---
Pain Clinic Assessment: 1. History of Osteoarthritis: Not Applicable History of Rheumatoid Arthritis: Not Applicable 2. Height: 5 ft. 5 in. 165.1 cm. Weight: 145.4 lb. oz. 65.953 kg. Patient's BMI: 24.2 3. Vital Signs: BP: 153/80 Pulse: 69 Resp: 16 Temp: 02 Sat: 99 ECG Mon: 4. Pain Intensity: 8 5. Fall Risk: Dizziness: N Needs help standing or walking: N Fallen in the last 3 months: N Fall risk comments: 6. Patient on Blood Thinner: None 7. History of Hypertension: Y 8. Opioid Therapy greater than 6 weeks: Y Opiate Contract Signed: 12/05/15 9. Risk Assessment Tool Provided: LOW RISK 10/23 10. Functional Assessment Tool: 11. Recreational Drug Use: Never Drug Type: Tobacco Use: Former Smoker Tobacco Type: Amount or Packs/day: How Many Years: Alcohol Use: No Frequency: Quant:
--- NOTE | 2018-10-28 08:13 | HPC ---
[facility] [address] [address] PAIN MANAGEMENT CONSULTATION Name: VON ALVARENGA Room #: REG [facility]..#: [id number] Admission: 10/27/18 Attend Phys: Maria Eugenia Jain Discharge: Date of : 60 Report #: [id number] THIS REPORT FOR: //name// CC: Maria Eugenia Jain FAM unknown DATE OF SERVICE: 10/27/2018 CHIEF COMPLAINT: Chronic low back pain with spondylosis and radiculopathy, osteoarthritis in her knees. HISTORY OF PRESENT ILLNESS: This is a followup visit for the patient who she sees pain medicine from our clinic. 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 She tells me tearfully that she had been giving her some of her medicines and is out early because he has terrible low back pain. The patient also tells me that she did go and get a prescription from Dr. Kyle Morgan for hydrocodone #30 pills for her low back pain. The patient tells me that since she has been out of her medicine for 3 days her pain as an 8/10 today, worse in her low back, right leg, left knee. Medication and cold do help her pain. The patient tells me that normally when she takes her medicine, her pain score is 1/10. She denies any daytime sleepiness or constipation. ALLERGIES: PENICILLIN. LIST OF MEDICATIONS: Hydrocodone 10/325, tizanidine 4 mg twice a day, atorvastatin 40 mg daily, aspirin 81 mg daily, Celexa 20 mg daily. PQRS: 1. The patient has a history of osteoarthritis in her lower extremities. Denies rheumatoid arthritis. 2. Height is 5 feet 5 inches, weight is 145. BMI is 24.2. 3. Vital signs: Blood pressure 153/80, pulse is 69, respirations 16, oxygen sat is 99. Pain score is 8/10. 4. Fall risk. She denies dizziness. Does not need help walking or standing. She has not fallen in the last 3 months. 5. The patient is not on any blood thinners and does take antihypertensive medicines. 6. Opioid therapy is greater than 6 weeks, therefore, an opioid signed contract is on the chart. 7. Her risk assessment tool is low. Functional assessment is 48/70. 8. The patient's recreational drug use, she denies. She is a former smoker and does not drink alcohol. 9. Prescription monitoring system was checked and did fill the prescription that the patient had told us about from Dr. Kyle Morgan. There is a urine drug screen on the chart, but we have needs to repeat that this year, [place] [address] PAIN MANAGEMENT CONSULTATION Name: KATIANA ALVARENGABetina BINGHAM Room #: REG KIRAN Castañeda#: [id number] Admission: 10/27/18 Attend Phys: Maria Eugenia Jain Discharge: Date of : 60 Report #: [id number] year old. PHYSICAL EXAMINATION: GENERAL: This is a well-developed, well-nourished 58-year-old female who appears her stated age. She is alert and orientated, tearful today. HEENT: Normocephalic, atraumatic. Extraocular eye muscles are intact. Mucous membranes are moist. NECK: No JVD or adenopathy. Range of motion is appropriate. MUSCULOSKELETAL: The patient is able to move from sitting to standing position, has pain with flexion and extension of her lower back. She has some tenderness in her lumbosacral area. She has also tenderness in her left knee without effusion. We reviewed the fact that opiate medications are being used to provide analgesia adequate to support activities of daily living, not attempting to achieve a specific pain score on the 0-10 Visual Analog Scale. The current opiate medications are providing sufficient analgesia to allow the patient to participate in activities of daily living. The patient is not exhibiting any aberrant behavior suggestive of drug diversion. The patient is not having any adverse reactions to medications. The patient is not suffering from daytime somnolence or mental acuity changes. The patient is managing opiate-induced constipation with appropriate bfsj-wed-hkhyaeq agents and dietary considerations. The patient was counseled on concern for caution with operating a motor vehicle while using opiate medications. A physical exam was performed and the patient's functional status was evaluated. All patients with back pain were advised against the bed rest greater than 4 days and were advised to return to normal activities. Pain score assessment was noted and the treatment plan was reviewed with the patient. All current medications, both prescribed and OTC were reviewed and reconciled on the electronic medical record. Tobacco screening was accomplished and smoking cessation was advised when indicated. BMI was noted and diet/exercise modification was recommended for all patients following outside normal parameters. I reviewed with the patient today their responsibilities to safeguard prescription medications, reviewed their responsibility to utilize medications only as prescribed by the physician. They are to seek and receive pain medications only from 1 physician group ([facility]). They are to use 1 pharmacy and keep the clinic informed if they change pharmacies. Their responsibilities include making followup visits in a timely fashion and to avoid abrupt discontinuation of medication usage. Their responsibilities further include bringing their medications (bottles from the pharmacy with residual pills) to the visit for possible confirmation of pill counts and the patient understands it is their responsibility to submit to random drug screens to ensure both that the medications prescribed are present, and that no other [facility] [address] [place] [address] PAIN MANAGEMENT CONSULTATION Name: VON ALVARENGA Room #: REG [facility].#: [id number] Admission: 10/27/18 Attend Phys: Maria Eugenia Jain Discharge: Date of : 60 Report #: [id number] controlled substances are present. All prescriptions provided today were generated electronically. IMPRESSION: 1. Chronic low back pain with spondylosis and mild radicular features. 2. Osteoarthritis in her left knee and hips. 3. Management of high risk medication under terms of written opioid agreement. PLAN: 1. Treatment options were discussed with the patient today. The patient has told me that she has given her spouse a few of her medications and also filled a script from an outside doctor. I informed the patient that this was a violation of her contract. She has a good understanding, that is why she volunteered this information before we asked her about it, though we did see the information on the prescription monitoring system of the recent fill from another physician. The patient regrets doing it. She told her that he needs to find his own doctor and get medicines from them. She tells me that he does not have insurance and I suggested that she tell him to go to [facility] that will be able to see him without any insurance. The patient tells me that she will see him. I have instructed the patient to safeguard her medications, keep them locked with her at all times and not to repeat this offense again and give him medications. She is agreeable with that because she is hurting, has been out of her medicines for 3 days. 2. I have instructed the patient that she will be on monthly appointments for a while. The patient understands this. Script given today for hydrocodone 10/325, #75, 2-3 tablets a day. 3. Next appointment made for 1 month time. The patient is seen today in collaboration with Dr. Antonio Hicks. <ELECTRONICALLY SIGNED> By: Maria Eugenia Jain 10/28/18 0813 1535 25 Maria Eugenia Jain /rosetta
== END ==
LOC: PAIN 07:43
DX: M47.26 Other spondylosis with radiculopathy, lumbar region (principal); M17.0 Bilateral primary osteoarthritis of knee; M16.0 Bilateral primary osteoarthritis of hip; G89.29 Other chronic pain; Z79.899 Other long term (current) drug therapy

== ENCOUNTER → 2018-11-25 | Outpatient (CLI) | payer BC, OTHER ==
[~2018-11-25] VITALS: Ht 165.1 cm; Wt 66.7 kg
[2018-11-25 08:11] VITALS: BP 129/86
--- NOTE | 2018-11-25 08:15 | NUR ---
Pain Clinic Assessment: 1. History of Osteoarthritis: Not Applicable History of Rheumatoid Arthritis: Not Applicable 2. Height: 5 ft. 5 in. 165.1 cm. Weight: 147.0 lb. oz. 66.679 kg. Patient's BMI: 24.5 3. Vital Signs: BP: 129/86 Pulse: 65 Resp: 16 Temp: 02 Sat: 97 ECG Mon: 4. Pain Intensity: 7-RT CALF, 2-BACK 5. Fall Risk: Dizziness: N Needs help standing or walking: N Fallen in the last 3 months: N Fall risk comments: 6. Patient on Blood Thinner: None 7. History of Hypertension: Y 8. Opioid Therapy greater than 6 weeks: Y Opiate Contract Signed: 12/05/15 9. Risk Assessment Tool Provided: LOW RISK 10/23 10. Functional Assessment Tool: 11. Recreational Drug Use: Never Drug Type: Tobacco Use: Former Smoker Tobacco Type: Amount or Packs/day: How Many Years: Alcohol Use: No Frequency: Quant:
--- NOTE | 2018-11-26 07:16 | HPC ---
[facility] [address] [place] [address] PAIN MANAGEMENT CONSULTATION Name: VON ALVARENGA ZACHERY Room #: REG Crissy Castañeda#: [id number] Admission: 11/25/18 Attend Phys: Maria Eugenia Jain Discharge: Date of : 60 Report #: [id number] THIS REPORT FOR: //name// CC: Maria Eugenia Coreas DATE OF SERVICE: 11/25/2018 CHIEF COMPLAINT: Chronic low back pain with spondylosis and radiculopathy, osteoarthritis in her knees, new complaint of right leg pain today. HISTORY OF PRESENT ILLNESS: This is a followup visit for this patient for her pain medications, though today she presents and tells me that she has been having significant right leg calf pain. She tells me that it started about 2 weeks ago. She was evaluated by [facility], had an ultrasound done for a DVT, which was negative. She continues to complain of significant pain in her right lateral calf area, says that it is a deep, throbbing, sharp pain, a 7/10. She tells me her pain is worse with walking and standing. Her medication and muscle relaxants have been somewhat helpful, but she says occasionally that pain in her leg puts her to tears. She did have an x-ray yesterday of her ankle, but she tells me that is not where she is having any of her pain today. She does not know those results. ALLERGIES: PENICILLIN. CURRENT MEDICATIONS: Hydrocodone 10/325 mg 2-3 times a day, tizanidine 4 mg twice a day, Lipitor 40 mg daily, aspirin 81 mg daily, and Celexa 20 mg daily. PQRS: 1. She has a history of osteoarthritis in her lower extremities. Denies rheumatoid arthritis. 2. Height is 5 feet 5 inches, weight is 147, BMI is 24.5. 3. Vital signs: 129/86, pulse of 65, respirations 16, oxygen sat 97. 4. Pain score 7/10 in her right calf and 2/10 in her lower back. 5. Fall risk: Denies dizziness. Does not need help walking or standing, has not fallen in the last 3 months. 6. The patient is not on any blood thinners and does have a history of hypertension. 7. Opioid therapy is greater than 6 weeks, therefore an opioid signed contract is on the chart. 8. Her risk assessment tool is low. Her functional assessment is 48/70. 9. Recreational drug use, she denies. She is a former smoker and does not drink alcohol. We did check the prescription monitoring system. It is not available for our prescription, but I do see that she did get some medicines in the Emergency Room [address] [address] PAIN MANAGEMENT CONSULTATION Name: ALVARENGAJUAN ANTONIOVONBetina BINGHAM Room #: REG CLCrissy Castañeda#: [id number] Admission: 11/25/18 Attend Phys: Maria Eugenia Jain Discharge: Date of : 60 Report #: [id number] when she went 2 weeks ago. I informed the patient again of this violation in her contract, she needed to at least call and let us know about this. The patient is seen now on a monthly basis. PHYSICAL EXAMINATION: GENERAL: This is a well-developed, well-nourished 58-year-old female who appears her stated age. She is alert and orientated. HEENT: Normocephalic, atraumatic. Extraocular muscles are intact. Mucous membranes are moist. NECK: Without JVD or adenopathy. Range of motion is appropriate. MUSCULOSKELETAL: The patient is able to move from sitting to standing position. She has pain in her lower right calf today. Pain is in the L5 distribution. She has pain with flexion of her right leg and pain on standing. The patient walks with a slightly antalgic gait today. We reviewed the fact that opiate medications are being used to provide analgesia adequate to support activities of daily living, not attempting to achieve a specific pain score on the 0-10 Visual Analog Scale. The current opiate medications are providing sufficient analgesia to allow the patient to participate in activities of daily living. The patient is not exhibiting any aberrant behavior suggestive of drug diversion. The patient is not having any adverse reactions to medications. The patient is not suffering from daytime somnolence or mental acuity changes. The patient is managing opiate-induced constipation with appropriate yqna-lfy-xtjtuoi agents and dietary considerations. The patient was counseled on concern for caution with operating a motor vehicle while using opiate medications. A physical exam was performed and the patient's functional status was evaluated. All patients with back pain were advised against the bed rest greater than 4 days and were advised to return to normal activities. Pain score assessment was noted and the treatment plan was reviewed with the patient. All current medications, both prescribed and OTC were reviewed and reconciled on the electronic medical record. Tobacco screening was accomplished and smoking cessation was advised when indicated. BMI was noted and diet/exercise modification was recommended for all patients following outside normal parameters. I reviewed with the patient today their responsibilities to safeguard prescription medications, reviewed their responsibility to utilize medications only as prescribed by the physician. They are to seek and receive pain medications only from 1 physician group ([facility]). They are to use 1 pharmacy and keep the clinic informed if they change pharmacies. Their responsibilities include making followup visits in a timely fashion and to avoid abrupt discontinuation of medication usage. Their responsibilities further include bringing their medications (bottles from the pharmacy with residual pills) to the visit for possible confirmation of pill counts and the patient [facility] [address] [place] [address] PAIN MANAGEMENT CONSULTATION Name: VON ALVARENGA Room #: REG [facility] M.R.#: [id number] Admission: 11/25/18 Attend Phys: Maria Eugenia Jain Discharge: Date of : 60 Report #: [id number] understands it is their responsibility to submit to random drug screens to ensure both that the medications prescribed are present, and that no other controlled substances are present. All prescriptions provided today were generated electronically. ASSESSMENT: 1. Chronic low back pain with spondylosis and radicular features following the L4-L5 distribution. 2. Osteoarthritis in her left knee and hips. 3. Management of high risk medication under terms of an opioid agreement. PLAN: 1. Treatment options were discussed today. I questioned the patient whether she had had an epidural in the past. It seems that her leg may be radicular in nature. She does complain of low back pain and then pain that is in her calf. She does not complain of any pain that radiates into her thigh. The patient tells me that she had an epidural in the past that was very helpful in relieving her leg pain, but she was told never to have steroids again because she was allergic. I questioned her regarding her allergy to steroids and she tells me that she had flushing of her face as well as felt like she was edgy. I explained that these are common side effects of steroid injections and typically we have them medicate with Benadryl. The patient tells me that she is agreeable to try another epidural for this pain and that she will dose with Benadryl to help relieve the flushing and the other side effects that go along with steroids. Appointment will be made with Dr. Hicks within the next week for this epidural. 2. Scripts given today for tizanidine 4 mg, #60. The patient finds this is very beneficial, especially helping her right leg pain currently. 3. Medicine of hydrocodone 10/325, #75 was given for 1 month. The patient will make an appointment in a month to follow up for medication management. She was also instructed not to fill any other narcotics from any other doctors per her opioid agreement. 4. We will check a UDS in her December visit. The patient seen in collaboration today with Dr. Seamus Kwon. <ELECTRONICALLY SIGNED> By: Maria Eugenia Jain 11/26/18 0716 [id number] [id number] Maria Eugenia Jain /rosetta
== END ==
LOC: PAIN 06:42
DX: M47.26 Other spondylosis with radiculopathy, lumbar region (principal); M17.0 Bilateral primary osteoarthritis of knee; M16.0 Bilateral primary osteoarthritis of hip; Z79.891 Long term (current) use of opiate analgesic; Z79.899 Other long term (current) drug therapy

== ENCOUNTER → 2019-01-21 | Outpatient (CLI) | payer BC, OTHER ==
[~2019-01-21] VITALS: Ht 165.1 cm; Wt 64.9 kg
[~2019-01-21] MED LIST changes: +GABAPENTIN 100100 MG PO; +LISINOPRIL5 MG PO
[2019-01-21 08:26] VITALS: BP 126/72
--- NOTE | 2019-01-21 09:08 | NUR ---
Pain Clinic Assessment: 1. History of Osteoarthritis: Not Applicable History of Rheumatoid Arthritis: Not Applicable 2. Height: 5 ft. 5 in. 165.1 cm. Weight: 143.0 lb. oz. 64.864 kg. Patient's BMI: 23.8 3. Vital Signs: BP: 126/72 Pulse: 67 Resp: 16 Temp: 02 Sat: 100 ECG Mon: 4. Pain Intensity: 3 5. Fall Risk: Dizziness: N Needs help standing or walking: N Fallen in the last 3 months: N Fall risk comments: 6. Patient on Blood Thinner: None 7. History of Hypertension: Y 8. Opioid Therapy greater than 6 weeks: Y Opiate Contract Signed: 12/05/15 9. Risk Assessment Tool Provided: LOW RISK 1 10. Functional Assessment Tool: 11. Recreational Drug Use: Never Drug Type: Tobacco Use: Former Smoker Tobacco Type: Amount or Packs/day: How Many Years: Alcohol Use: No Frequency: Quant:
--- NOTE | 2019-01-22 09:06 | HPC ---
[facility] [address] [place] [address] PAIN MANAGEMENT CONSULTATION Name: VON ALVARENGA Room #: REG [facility] Anuj.#: [id number] Admission: 01/21/19 ������������������ Attend Phys: Maria Eugenia Jain Discharge: ������������������ Date of : 60 Report #: [id number] THIS REPORT FOR: //name// CC: Maria Eugenia KNOWLES DATE OF SERVICE: 01/21/2019 CHIEF COMPLAINT: Chronic low back pain with spondylosis and radiculopathy, also carpal tunnel in her right hand. HISTORY OF PRESENT ILLNESS: This is a very pleasant 58-year-old female who returns to the Pain Clinic today for refill of her medications. She tells me that she has ongoing low back pain and her right leg pain, but she also complains of right wrist pain. She tells me that she is having surgery on the of this month for carpal tunnel surgery. She tells me she will have to be off work a few days per the surgeon. Today, she is rating her pain though of 3/10. She said her medication and cold and resting makes her pain better, but walking increases her pain. She denies any constipation or daytime sleepiness. ALLERGIES: PENICILLIN. CURRENT LIST OF MEDICATIONS: Hydrocodone 10/325 2-3 times a day, lisinopril 5 mg daily, gabapentin 100 mg 3 times a day, tizanidine 4 mg b.i.d. p.r.n., atorvastatin 40 mg daily, aspirin 81 mg daily and Celexa 20 mg daily. PQRS: 1. She has a history of osteoarthritis in her lower extremities. Denies any rheumatoid arthritis. 2. Height is 5 feet 5 inches, weight is 143, BMI is 23. 3. Vital signs: 126/72, pulse is 67, respirations 16, oxygen sat 100. 4. Pain score 3/10. 5. Fall risk. Denies dizziness, does not need help walking or standing, has not fallen in the last 3 months. 6. The patient is not on any blood thinners, does have a history of hypertension. 7. Opiate therapy is greater than 6 weeks. Therefore, no opioid signed contract is on the chart. 8. Risk assessment tool is low. Functional assessment is . 9. Recreational drug use, she denies. She is a former smoker and does not drink alcohol. Did check the prescription monitoring system. There is no aberrant fills on medications anymore. We do see this patient on a monthly basis. There is a drug screen on the chart. PHYSICAL EXAMINATION: GENERAL: This is a well-developed, well-nourished 58-year-old female, who [address] [address] PAIN MANAGEMENT CONSULTATION Name: VON ALVARENGA ZACHERY Room #: REG KIRAN Castañeda#: [id number] Admission: 01/21/19 ������������������ Attend Phys: Maria Eugenia Jain Discharge: ������������������ Date of : 60 Report #: [id number] appears her stated age. She is alert and orientated. HEENT: Normocephalic, atraumatic. Extraocular eye muscles are intact. Mucous membranes are moist. NECK: Without adenopathy or JVD. MUSCULOSKELETAL: The patient is able to move from sitting to standing without any difficulty. She does complain of some low back pain at the L5 distribution. She also complains of some right hand, wrist pain and is scheduled for carpal tunnel surgery soon. The patient does walk with an antalgic gait. Her lower extremity strength judged to be 5/5 in all major muscle groups and muscle tone is symmetrical. We reviewed the fact that opiate medications are being used to provide analgesia adequate to support activities of daily living, not attempting to achieve a specific pain score on the 0-10 Visual Analog Scale. The current opiate medications are providing sufficient analgesia to allow the patient to participate in activities of daily living. The patient is not exhibiting any aberrant behavior suggestive of drug diversion. The patient is not having any adverse reactions to medications. The patient is not suffering from daytime somnolence or mental acuity changes. The patient is managing opiate-induced constipation with appropriate vaqf-qwf-pmmckrn agents and dietary considerations. The patient was counseled on concern for caution with operating a motor vehicle while using opiate medications. A physical exam was performed and the patient's functional status was evaluated. All patients with back pain were advised against the bed rest greater than 4 days and were advised to return to normal activities. Pain score assessment was noted and the treatment plan was reviewed with the patient. All current medications, both prescribed and OTC were reviewed and reconciled on the electronic medical record. Tobacco screening was accomplished and smoking cessation was advised when indicated. BMI was noted and diet/exercise modification was recommended for all patients following outside normal parameters. I reviewed with the patient today their responsibilities to safeguard prescription medications, reviewed their responsibility to utilize medications only as prescribed by the physician. They are to seek and receive pain medications only from 1 physician group ([facility]). They are to use 1 pharmacy and keep the clinic informed if they change pharmacies. Their responsibilities include making followup visits in a timely fashion and to avoid abrupt discontinuation of medication usage. Their responsibilities further include bringing their medications (bottles from the pharmacy with residual pills) to the visit for possible confirmation of pill counts and the patient understands it is their responsibility to submit to random drug screens to ensure both that the medications prescribed are present, and that no other controlled substances are present. All prescriptions provided today were generated electronically. [facility] [address] [place] [address] PAIN MANAGEMENT CONSULTATION Name: VON ALVARENGA [id number] Admission: 01/21/19 ������������������ Attend Phys: Maria Eugenia Jain Discharge: ������������������ Date of : 60 Report #: [id number] ASSESSMENT: 1. Chronic low back pain with spondylosis and radicular features following the L4-L5 distribution. 2. Osteoarthritis in her knees and hips. 3. Management of high risk medication under terms of written opioid agreement. PLAN: 1. We discussed treatment options with the patient today. The patient tells me that she is going to have surgery soon within the next couple of weeks. I encouraged the patient to try to decrease her hydrocodone use prior to her surgery, therefore that she would be able to have a few extra pain pills the days after. I will also provide her with 15 extra pills to get her through the postop period. The patient is not to get any prescriptions from her surgeon and she was instructed about this. Dr. Seamus Kwon did come in and discussed her surgery with her and her medications as well. The patient verbalized understanding. 2. The patient did return to tizanidine prescription today. She said that she is taking it very sparingly and did not need the scripts, so we will destroy the one from 11/25/2018. 3. Script given for hydrocodone , #90 for this month only. I did instruct her that yes, we did increase this to get her through her surgery and this medicine was supposed to last her for an entire month. The patient verbalizes understanding. 4. I did find a drug screen after the patient was here that did show no narcotics listed. I will approach the subject with the patient when she comes back and we will repeat a urine drug screen at that time. We have found that some of our buccal screens have been coming up negative for the medications if they were very dry specimen. I am unsure if this is the case or not, but we will repeat it at her next visit as a random drug screen. 5. The patient seen with Dr. Seamus Kwon, who also collaborated care today. ��������������������������������������������� <ELECTRONICALLY SIGNED> ���������������������������������������� By: Maria Eugenia Jain ��������������������������������������������� 01/22/19 0906 [id number] Maria Eugenia Jain /nt
== END ==
LOC: PAIN 06:45
DX: M47.26 Other spondylosis with radiculopathy, lumbar region (principal); M16.0 Bilateral primary osteoarthritis of hip; M17.0 Bilateral primary osteoarthritis of knee; Z79.891 Long term (current) use of opiate analgesic; Z79.899 Other long term (current) drug therapy

== ENCOUNTER → 2019-02-19 | Outpatient (CLI) | payer BC, OTHER ==
[~2019-02-19] VITALS: Ht 165.1 cm; Wt 64.8 kg
[2019-02-19 10:00] VITALS: BP 104/62
--- NOTE | 2019-02-19 10:24 | NUR ---
Pain Clinic Assessment: 1. History of Osteoarthritis: Not Applicable History of Rheumatoid Arthritis: Not Applicable 2. Height: 5 ft. 5 in. 165.1 cm. Weight: 142.9 lb. oz. 64.819 kg. Patient's BMI: 23.8 3. Vital Signs: BP: 104/62 Pulse: 75 Resp: 14 Temp: 02 Sat: 98 ECG Mon: 4. Pain Intensity: 8 5. Fall Risk: Dizziness: N Needs help standing or walking: N Fallen in the last 3 months: N Fall risk comments: 6. Patient on Blood Thinner: None 7. History of Hypertension: Y 8. Opioid Therapy greater than 6 weeks: Y Opiate Contract Signed: 12/05/15 9. Risk Assessment Tool Provided: LOW RISK 1 10. Functional Assessment Tool: 11. Recreational Drug Use: Never Drug Type: Tobacco Use: Former Smoker Tobacco Type: Amount or Packs/day: How Many Years: Alcohol Use: No Frequency: Quant:
--- NOTE | 2019-02-24 14:35 | HPC ---
[facility] [address] [place] [address] PAIN MANAGEMENT CONSULTATION Name: VON ALVARENGA Room #: REG [facility] Garry#: [id number] Admission: 02/19/19 ������������������ Attend Phys: Maria Eugenia Jain Discharge: ������������������ Date of : 60 Report #: [id number] THIS REPORT FOR: //name// CC: Maria Eugenia TEJADACY BENSON DATE OF SERVICE: 02/19/2019 CHIEF COMPLAINT: Chronic low back pain with spondylosis and radiculopathy and carpal tunnel surgery in her right hand. HISTORY OF PRESENT ILLNESS: This is a pleasant 58-year-old female who returns to the Pain Clinic today for refill of her medications. She recently had carpal tunnel release surgery with Dr. Mandujano and has been recovering quite nicely. She is to start work again on Saturday. The patient tells me that her pain score is 8/10 today, mostly in her lower back and right leg as well as her right arm. She tells me it is worse when she is walking, standing and working, but her medications are helpful. She would like a refill of her medications today. ALLERGIES: PENICILLIN. CURRENT LIST OF MEDICATIONS: Lisinopril 5 mg daily, tizanidine 4 mg b.i.d., hydrocodone 10/325 two to three times a day, Lipitor 40 mg daily, aspirin 81 mg daily and Celexa 20 mg daily. PQRS: 1. She has a history of osteoarthritis in her lower extremities. Denies any rheumatoid arthritis. 2. Height is 5 feet 5 inches, weight is 142 pounds, BMI is 23.8. 3. Vital signs: Blood pressure 104/62, pulse 75, respirations 14, oxygen sat is 98. 4. Pain score is 8/10. 5. Fall risk: Denies dizziness. Does not need help walking or standing. Has not fallen in the last three months. 6. The patient is not on any blood thinners, but does take medicine for hypertension. 7. Opioid therapy is greater than six weeks; therefore, an opioid signed contract is on the chart. 8. Risk assessment tool is low. Functional assessment is . 9. Recreational drug use: She denies. She is a former smoker and does not drink alcohol. 10. We did check the prescription monitoring system on this patient and found that she recently has filled medicines from the Emergency Room doctor as well as the surgeon. The patient has filled from multiple doctors since October and has seven different providers filling narcotics for her. We also will recheck a urine drug screen [place] [address] PAIN MANAGEMENT CONSULTATION Name: VON ALVARENGA Room #: REG KIRAN Castañeda#: [id number] Admission: 02/19/19 ������������������ Attend Phys: Maria Eugenia Jain Discharge: ������������������ Date of : 60 Report #: [id number] PHYSICAL EXAMINATION: GENERAL: This is a well-developed, well-nourished 58-year-old female who appears her stated age. She is alert and orientated and a good historian. HEENT: Normocephalic, atraumatic. Extraocular eye muscles are intact. Mucous membranes are moist. NECK: Without adenopathy or JVD. MUSCULOSKELETAL: The patient does have some Steri-Strips present on her right elbow and on her right wrist. Her scar is approximated with no redness or swelling from her recent surgery. The patient is able to move from sitting to standing without difficulty. Does complain of some low back pain today. She does walk with a slightly antalgic gait. Her lower extremity strength judged to be 5/5 in all major muscle groups and muscle tone is equal and symmetrical. We reviewed the fact that opiate medications are being used to provide analgesia adequate to support activities of daily living, not attempting to achieve a specific pain score on the 0-10 Visual Analog Scale. The current opiate medications are providing sufficient analgesia to allow the patient to participate in activities of daily living. The patient is not exhibiting any aberrant behavior suggestive of drug diversion. The patient is not having any adverse reactions to medications. The patient is not suffering from daytime somnolence or mental acuity changes. The patient is managing opiate-induced constipation with appropriate bcev-bvn-ujhsand agents and dietary considerations. The patient was counseled on concern for caution with operating a motor vehicle while using opiate medications. A physical exam was performed and the patient's functional status was evaluated. All patients with back pain were advised against the bed rest greater than 4 days and were advised to return to normal activities. Pain score assessment was noted and the treatment plan was reviewed with the patient. All current medications, both prescribed and OTC were reviewed and reconciled on the electronic medical record. Tobacco screening was accomplished and smoking cessation was advised when indicated. BMI was noted and diet/exercise modification was recommended for all patients following outside normal parameters. I reviewed with the patient today their responsibilities to safeguard prescription medications, reviewed their responsibility to utilize medications only as prescribed by the physician. They are to seek and receive pain medications only from 1 physician group ( [facility]). They are to use 1 pharmacy and keep the clinic informed if they change pharmacies. Their responsibilities include making followup visits in a timely fashion and to avoid abrupt discontinuation of medication usage. Their responsibilities further include bringing their medications (bottles from the pharmacy with residual pills) to the visit for possible confirmation of pill counts and the patient understands it is their responsibility to submit to random drug screens to [facility] [address] [place] [address] PAIN MANAGEMENT CONSULTATION Name: VON ALVARENGA Room #: REG [facility].#: [id number] Admission: 02/19/19 ������������������ Attend Phys: Maria Eugenia Jain Discharge: ������������������ Date of : 60 Report #: [id number] ensure both that the medications prescribed are present, and that no other controlled substances are present. All prescriptions provided today were generated electronically. PLAN: 1. We discussed treatment options with the patient today. According to the prescription monitoring system, the patient has filled medications from two different doctors since our recent visit with her one month ago. At that visit, we discussed not needing to fill any medications from her surgeon since we gave her 15 extra pills to get her through her carpal tunnel surgery. The patient tells us that she did fill hydrocodone and tramadol from her surgeon. She did not take her hydrocodone. Her took it from her and she only took one tramadol stating that that was not effective in controlling her pain and her took those medications as well. There is also a fill from an ER doctor. The patient tells me that she went for her hand pain before her carpal tunnel surgery. We addressed the issue that we have given her extra pain pills and instructed her not to get medicines from any other physicians per her agreement with this pain clinic. The patient verbalizes understanding that she understands now, she will tell them no if she is offered any prescriptions and not to use the Emergency Room. 2. We did discuss the severity of her letting her take her pain medicines. He needs to find his own physician and she needs to keep her medicines locked in a lockbox and safeguard them at all times. They are her medicines for her to take for her chronic pain and he needs to find his own physician. The patient verbalizes understanding of this and is quite tearful during parts of this conversation. 3. We will give the patient one month of medications of the hydrocodone 10/325, #75, which is a morphine milliequivalent of 25 per day, way under the CDC guidelines. The patient will be continued to be seen on a monthly basis. 4. We did check a random urine drug screen on this patient today. 5. Dr. Antonio Hicks was present for part of this visit today and reiterated the above about safeguarding her medications, keeping them locked up, not sharing her medications with anybody and not seeking pain medications from any other physicians other than us. If we continue to have these problems from the patient, then she will be dismissed from our clinic. The patient verbalizes understanding. An appointment made for one month. ��������������������������������������������� <ELECTRONICALLY SIGNED> ���������������������������������������� By: Maria Eugenia Jain ��������������������������������������������� 02/24/19 1435 [id number] Maria Eugenia Jain /nt
== END ==
LOC: PAIN 06:51
DX: M47.26 Other spondylosis with radiculopathy, lumbar region (principal); Z79.899 Other long term (current) drug therapy

== ENCOUNTER → 2019-03-18 | Outpatient (CLI) | payer BC, OTHER ==
[~2019-03-18] VITALS: Ht 162.6 cm; Wt 65.3 kg
[~2019-03-18] MED LIST changes: +HYDROCODON-ACE1 EAC8 PO
[2019-03-18 12:35] VITALS: BP 134/74
--- NOTE | 2019-03-18 12:38 | NUR ---
Pain Clinic Assessment: 1. History of Osteoarthritis: Not Applicable History of Rheumatoid Arthritis: Not Applicable 2. Height: 5 ft. 4 in. 162.6 cm. Weight: 144.0 lb. oz. 65.318 kg. Patient's BMI: 24.7 3. Vital Signs: BP: 134/74 Pulse: 76 Resp: 15 Temp: 02 Sat: 100 ECG Mon: 4. Pain Intensity: 5 5. Fall Risk: Dizziness: N Needs help standing or walking: N Fallen in the last 3 months: N Fall risk comments: 6. Patient on Blood Thinner: None 7. History of Hypertension: Y 8. Opioid Therapy greater than 6 weeks: Y Opiate Contract Signed: 12/05/15 9. Risk Assessment Tool Provided: LOW RISK 1 10. Functional Assessment Tool: 11. Recreational Drug Use: Never Drug Type: Tobacco Use: Former Smoker Tobacco Type: Amount or Packs/day: How Many Years: Alcohol Use: No Frequency: Quant:
--- NOTE | 2019-03-19 15:28 | HPC ---
[facility] [place] [address] PAIN MANAGEMENT CONSULTATION Name: VON ALVARENGA Room #: REG [facility] Garry#: [id number] Admission: 03/18/19 ������������������ Attend Phys: Maria Eugenia Jain Discharge: ������������������ Date of : 60 Report #: [id number] THIS REPORT FOR: //name// CC: Maria Eugenia TEJADACY BENSON DATE OF SERVICE: 03/18/2019 CHIEF COMPLAINT: Chronic low back pain with spondylosis and radiculopathy and right hand pain. HISTORY OF PRESENT ILLNESS: This is a very pleasant 58-year-old female who returns to the pain clinic today for refill of her medications. She tells me that her pain is 5/10 today, mostly in her lower back and right leg that radiates into her calf, but she is also having some ongoing right wrist pain from her recent carpal tunnel surgery. She tells me that working makes her pain worse, though she feels like she needs to work, so she does use her pain medications when she is working and they are helpful in relieving some of her pain allowing her to work as well as cold and rest. She is in need of a refill of her medications today. The patient tells me that she has locked up her medications at work since our last visit, which we instructed her to do. She only takes home, which she needs to use while she was at home since most of her pain is while she is working and takes her pain medications there. She does not have to take very many pain pills at home. Also, she tells me that her is going to get on insurance soon, so he will be finding his own physician, these were things that we had asked her to look into her after her last visit. ALLERGIES: PENICILLIN. CURRENT MEDICATIONS: Hydrocodone 10/325 up to 3 times a day, lisinopril 5 mg daily, Zanaflex 4 mg at bedtime, Lipitor 40 mg daily, aspirin 81 mg daily and Celexa 20 mg daily. PQRS: 1. She has a history of osteoarthritis in her lower extremities. Denies any rheumatoid arthritis. 2. Height is 5 feet 4 inches, weight is 144, BMI is 24. 3. Vital signs. Blood pressure 134/74, pulse is 76, respirations 15, oxygen sat 100%. 4. Pain score is 5/10. 5. Fall risk. Denies dizziness, does not need help standing or walking, has not fallen in the last 3 months. 6. The patient is not on any blood thinners, but does [place] [address] PAIN MANAGEMENT CONSULTATION Name: VON ALVARENGA Room #: REG [facility]..#: [id number] Admission: 03/18/19 ������������������ Attend Phys: Maria Eugenia Jain Discharge: ������������������ Date of : 60 Report #: [id number] 7. Opioid therapy is greater than 6 weeks; therefore, an opioid signed contract is on the chart. 8. Risk assessment tool is low. Functional assessment is 19/70. 9. Recreational drug use, she denies. She is a former smoker and does not drink alcohol. We did check the prescription monitoring system. The patient is filling appropriately for her medications in the past month, already had previously discussed any discrepancies that we had seen before. There, we did recently do another drug screen in February. I questioned the patient on this at that appointment. She had told us that she was not taking her oxycodone or tramadol that she had been prescribed from Dr. Dwight Holden, though it appears that she did take some. She now admits that she did take a few of those pills. Also, her hydrocodone was not present in her drug screen. The patient does not understand why this is so because she tells me she has been taking that on a regular basis every day. I explained to the patient that we will do another random drug screen on her in the future and if it does come up negative again and positive for other medications, she will be dismissed from our practice. The patient verbalizes understanding. She was made aware of this last visit by Dr. Antonio Hicks and myself. We discussed about discrepancies and use of extra medications that are not prescribed by this clinic under her contract. PHYSICAL EXAMINATION: GENERAL: This is a well-developed, well-nourished white female who appears her stated age, placing her current pain score today at 5/10. She is alert and orientated. She appears her stated age. HEENT: Normocephalic, atraumatic. Extraocular eye muscles are intact. Mucous membranes are moist. NECK: Without adenopathy or JVD. MUSCULOSKELETAL: The patient is able to move from sitting to standing without difficulty. She has pain across the lower back following the L5 distribution. She also complains of some right wrist pain and slight swelling as a result of her recent carpal tunnel surgery. The incisions are well approximated and almost completely healed. Her lower extremity strength judged to be 5/5 in all major muscle groups and muscle tone is symmetrical. She does walk with a slightly antalgic gait. We reviewed the fact that opiate medications are being used to provide analgesia adequate to support activities of daily living, not attempting to achieve a specific pain score on the 0-10 Visual Analog Scale. The current opiate medications are providing sufficient analgesia to allow the patient to participate in activities of daily living. The patient is not exhibiting any aberrant behavior suggestive of drug diversion. The patient is not having any adverse reactions to medications. The patient is not suffering from daytime somnolence or mental acuity changes. The patient is managing opiate-induced constipation with appropriate xwrl-gob-deerwik agents and dietary [facility] [address] [place] [address] PAIN MANAGEMENT CONSULTATION Name: VON ALVARENGA Room #: REG KIRAN Castañeda#: [id number] Admission: 03/18/19 ������������������ Attend Phys: Maria Eugenia Jain Discharge: ������������������ Date of : 60 Report #: [id number] considerations. The patient was counseled on concern for caution with operating a motor vehicle while using opiate medications. A physical exam was performed and the patient's functional status was evaluated. All patients with back pain were advised against the bed rest greater than 4 days and were advised to return to normal activities. Pain score assessment was noted and the treatment plan was reviewed with the patient. All current medications, both prescribed and OTC were reviewed and reconciled on the electronic medical record. Tobacco screening was accomplished and smoking cessation was advised when indicated. BMI was noted and diet/exercise modification was recommended for all patients following outside normal parameters. I reviewed with the patient today their responsibilities to safeguard prescription medications, reviewed their responsibility to utilize medications only as prescribed by the physician. They are to seek and receive pain medications only from 1 physician group ( [facility]). They are to use 1 pharmacy and keep the clinic informed if they change pharmacies. Their responsibilities include making followup visits in a timely fashion and to avoid abrupt discontinuation of medication usage. Their responsibilities further include bringing their medications (bottles from the pharmacy with residual pills) to the visit for possible confirmation of pill counts and the patient understands it is their responsibility to submit to random drug screens to ensure both that the medications prescribed are present, and that no other controlled substances are present. All prescriptions provided today were generated electronically. PLAN: 1. We discussed treatment options with the patient again today. She tells me that she did get a lock box for her medications, which is one requirement that we talked about last time to safeguard all of her medications and to keep them away from her . She tells me she has done that and she only brings home medications that she will need when she is not working. They are kept safe in her locker in a lockbox or if she does bring them home, she keeps them in a lockbox. 2. The patient tells me that her right wrist is still bothering her. She did see a surgeon who told her that he thought that it was healing appropriately. I explained to her that sometimes, it does take several months before the pain gets better after initial surgery and it has been only about a month since this and to give it more time to heal, she verbalizes understanding. 3. We discussed her recent drug screen as I had mentioned above. I explained to her that we will also do another random screen on her again that if it was not showing hydrocodone and showed other medications that we may have to dismiss her from our practice. She has been reminded of the contract and taking medications that are not prescribed. She verbalizes understanding. She understands that she needs the medications to work and she will continue on her [address] [address] PAIN MANAGEMENT CONSULTATION Name: LYLEVONBetina BINGHAM Room #: REG KIRAN Castañeda#: [id number] Admission: 03/18/19 ������������������ Attend Phys: Maria Eugenia Jain Discharge: ������������������ Date of : 60 Report #: [id number] current plan. 4. We have decided to decrease her hydrocodone use to 7.5/325. She will still get #75 tablets per month. The patient verbalizes understanding of this decrease of medications. If we find aberrant behavior again, we will give her a taper dose to wean off the medications. The patient verbalizes understanding. The patient will return in 1-month time period. The patient is seen today in collaboration with Dr. Brain Weston. ��������������������������������������������� <ELECTRONICALLY SIGNED> ���������������������������������������� By: Maria Eugenia Jain ��������������������������������������������� 03/19/19 1528 [id number] Maria Eugenia Jain /rsoetta
== END ==
LOC: PAIN 09:33
DX: M47.26 Other spondylosis with radiculopathy, lumbar region (principal); G89.29 Other chronic pain; M79.641 Pain in right hand; Z88.0 Allergy status to penicillin; Z79.899 Other long term (current) drug therapy; Z79.891 Long term (current) use of opiate analgesic

== ENCOUNTER → 2019-04-16 | Outpatient (CLI) | payer BC, OTHER ==
[~2019-04-16] VITALS: Ht 162.6 cm; Wt 67.3 kg
[2019-04-16 14:30] VITALS: BP 118/62
--- NOTE | 2019-04-16 14:41 | NUR ---
Pain Clinic Assessment: 1. History of Osteoarthritis: Not Applicable History of Rheumatoid Arthritis: Not Applicable 2. Height: 5 ft. 4 in. 162.6 cm. Weight: 148.4 lb. oz. 67.314 kg. Patient's BMI: 25.5 3. Vital Signs: BP: 118/62 Pulse: 71 Resp: 14 Temp: 02 Sat: 97 ECG Mon: 4. Pain Intensity: back-3,head-7 5. Fall Risk: Dizziness: Y Needs help standing or walking: N Fallen in the last 3 months: N Fall risk comments: 6. Patient on Blood Thinner: None 7. History of Hypertension: Y 8. Opioid Therapy greater than 6 weeks: Y Opiate Contract Signed: 12/05/15 9. Risk Assessment Tool Provided: LOW RISK 1 10. Functional Assessment Tool: 11. Recreational Drug Use: Never Drug Type: Tobacco Use: Former Smoker Tobacco Type: Amount or Packs/day: How Many Years: Alcohol Use: No Frequency: Quant:
--- NOTE | 2019-04-17 08:13 | HPC ---
[facility] [place] [address] PAIN MANAGEMENT CONSULTATION Name: VON ALVARENGA [facility]: [facility] [id number] Admission: 04/16/19 ������������������ Attend Phys: Maria Eugenia Jain Discharge: ������������������ Date of : 60 Report #: [id number] THIS REPORT FOR: //name// CC: Maria Eugenia KNOWLES DATE OF SERVICE: 04/16/2019 CHIEF COMPLAINT: Chronic low back pain with spondylosis and radiculopathy and headache. HISTORY OF PRESENT ILLNESS: This is a 58-year-old female who returns to the pain clinic today for refill of her medications. She tells me that she has been experiencing a migraine headache for the past 4 days. She did go to [facility] and received some IV medication and she did go home and sleep. After she woke up, her headache was still there. She does have a primary care doctor appointment on Saturday to discuss migraines and options for medications. She tells me her head pain today is 7/10. Most of her pain is in her right temporal area. Her lower back pain, which we normally see her for is 3/10. Her pain is located in her lumbar area that radiates down her right leg into her calf. It is a throbbing, aching, shooting pain; worse with walking and working; but her medications are usually helpful except that she is out of her pain pills since Saturday because she had taken more for her migraine. She tells me also that she had missed work Saturday and Saturday because of this migraine, so she did work today despite her headache. She would like a refill of her medication today. ALLERGIES: PENICILLIN. CURRENT LIST OF MEDICATIONS: Hydrocodone 7.5/325 p.r.n., lisinopril 5 mg daily, tizanidine p.r.n., atorvastatin 40 mg daily, aspirin, and Celexa 20 mg daily. PQRS: 1. She has a history of osteoarthritis in her lower extremities. Denies any rheumatoid arthritis. 2. Height is 5 feet 4 inches, weight is 148, BMI is 25. 3. Vital signs: Blood pressure 118/62, pulse is 71, respirations 14, oxygen sat is 97. 4. Pain score is 3/10 in her back and 7/10 in her head. 5. Fall risk: She complains of dizziness. Does not help walking or standing. Has not fallen in the last 3 months. 6. The patient is not on any blood thinners. She does take medicine for hypertension. 7. Her opioid therapy is greater than 6 weeks, therefore, an opiate signed contract is on the chart. 8. Risk assessment tool is low. Functional status is 19/70. [address] [address] PAIN MANAGEMENT CONSULTATION Name: VON ALVARENGA ZACHERY Room #: REG KIRAN Castañeda#: [id number] Admission: 04/16/19 ������������������ Attend Phys: Maria Eugenia Jain Discharge: ������������������ Date of : 60 Report #: [id number] 9. Recreational drug use, she denies. She is a former smoker and does not drink alcohol. We did check the prescription monitoring system. The patient is filling appropriately and is on time for her medications today. There are recent drug screens in the chart that we have discussed with the patient: PHYSICAL EXAMINATION: GENERAL: This is a well-developed, well-nourished white female who appears her stated age, placing her current pain score at 5/10. She is alert and orientated. Her pain score is 3/10 for her back pain. HEENT: Normocephalic, atraumatic. Extraocular eye muscles are intact. Mucous membranes are moist. The patient is squinting slightly due to bright lights with her migraine today. The patient does have a headache in her right temporal area today. NECK: Without adenopathy or JVD. MUSCULOSKELETAL: The patient is able to move from sitting to standing without difficulty. She has pain across her lower back following the L5 distribution. Her incision is a well-healed on her right wrist and right elbow from her recent carpal tunnel surgery. She walks with a slightly antalgic gait. We reviewed the fact that opiate medications are being used to provide analgesia adequate to support activities of daily living, not attempting to achieve a specific pain score on the 0-10 Visual Analog Scale. The current opiate medications are providing sufficient analgesia to allow the patient to participate in activities of daily living. The patient is not exhibiting any aberrant behavior suggestive of drug diversion. The patient is not having any adverse reactions to medications. The patient is not suffering from daytime somnolence or mental acuity changes. The patient is managing opiate-induced constipation with appropriate ssof-aue-mxvvfvd agents and dietary considerations. The patient was counseled on concern for caution with operating a motor vehicle while using opiate medications. A physical exam was performed and the patient's functional status was evaluated. All patients with back pain were advised against the bed rest greater than 4 days and were advised to return to normal activities. Pain score assessment was noted and the treatment plan was reviewed with the patient. All current medications, both prescribed and OTC were reviewed and reconciled on the electronic medical record. Tobacco screening was accomplished and smoking cessation was advised when indicated. BMI was noted and diet/exercise modification was recommended for all patients following outside normal parameters. I reviewed with the patient today their responsibilities to safeguard prescription medications, reviewed their responsibility to utilize medications only as prescribed by the physician. They are to seek and receive pain [facility] [address] [place] [address] PAIN MANAGEMENT CONSULTATION Name: VON ALVARENGA Room #: REG [facility]..#: [id number] Admission: 04/16/19 ������������������ Attend Phys: Maria Eugenia Jain Discharge: ������������������ Date of : 60 Report #: [id number] medications only from 1 physician group ( [facility]). They are to use 1 pharmacy and keep the clinic informed if they change pharmacies. Their responsibilities include making followup visits in a timely fashion and to avoid abrupt discontinuation of medication usage. Their responsibilities further include bringing their medications (bottles from the pharmacy with residual pills) to the visit for possible confirmation of pill counts and the patient understands it is their responsibility to submit to random drug screens to ensure both that the medications prescribed are present, and that no other controlled substances are present. All prescriptions provided today were generated electronically. ASSESSMENT: 1. Chronic low back pain with spondylosis. 2. Lumbar radiculopathy following the L4-L5 distribution. 3. Osteoarthritis in her knees and hips. 4. Migraine headache. 5. Management of high risk medications under terms of written opioid agreement. PLAN: 1. We discussed treatment options with the patient today. Before the patient suffered from her migraine, her overall pain was quite stable. She was doing quite well on her hydrocodone 7.5 three times a day at max, occasionally 2 times a day and would like a refill of those. She tells me she does not need her tizanidine refilled today because she takes that only at night and uses that very sparingly. 2. Script was given for hydrocodone 7.5/325, #75 for 1 month. Appointment will be made for followup at that time. 3. Encouraged the patient to seek her primary care doctor for her migraines on Saturday. She tells me she has Topamax that she has taken p.r.n. I encouraged her to talk to her primary care doctor about migraine medicine that is for rescue such as Relpax or Imitrex or to take Topamax on a daily basis, but the patient feels that she does not have migraines often enough to take anything on a daily basis: The patient is seen with Dr. Antonio Hicks who collaborated care today. ��������������������������������������������� <ELECTRONICALLY SIGNED> ���������������������������������������� By: Maria Eugenia Jani ��������������������������������������������� 04/17/19 0813 [id number] Maria Eugenia Jain /rosetta
== END ==
LOC: PAIN 07:02
DX: M47.26 Other spondylosis with radiculopathy, lumbar region (principal); M17.0 Bilateral primary osteoarthritis of knee; M16.0 Bilateral primary osteoarthritis of hip; R51 Headache; Z79.899 Other long term (current) drug therapy

== ENCOUNTER → 2019-05-07 | Outpatient (CLI) | payer BC, OTHER ==
[~2019-05-07] VITALS: Ht 162.6 cm; Wt 66.0 kg
[~2019-05-07] MED LIST changes: +ZANAFLEX4 M2 PO
[2019-05-07 12:44] VITALS: BP 138/62
--- NOTE | 2019-05-07 12:48 | NUR ---
Pain Clinic Assessment: 1. History of Osteoarthritis: Not Applicable History of Rheumatoid Arthritis: Not Applicable 2. Height: 5 ft. 4 in. 162.6 cm. Weight: 145.6 lb. oz. 66.044 kg. Patient's BMI: 25.0 3. Vital Signs: BP: 138/62 Pulse: 63 Resp: 16 Temp: 02 Sat: 98 ECG Mon: 4. Pain Intensity: 4 5. Fall Risk: Dizziness: N Needs help standing or walking: N Fallen in the last 3 months: N Fall risk comments: 6. Patient on Blood Thinner: None 7. History of Hypertension: Y 8. Opioid Therapy greater than 6 weeks: Y Opiate Contract Signed: 12/05/15 9. Risk Assessment Tool Provided: LOW RISK 1 10. Functional Assessment Tool: 11. Recreational Drug Use: Never Drug Type: Tobacco Use: Former Smoker Tobacco Type: Amount or Packs/day: How Many Years: Alcohol Use: No Frequency: Quant:
--- NOTE | 2019-05-08 08:13 | HPC ---
[facility] [place] [address] PAIN MANAGEMENT CONSULTATION Name: VON ALVARENGA Room #: REG KIRAN Castañeda#: [id number] Admission: 05/07/19 ������������������ Attend Phys: Maria Eugenia Jain Discharge: ������������������ Date of : 60 Report #: [id number] THIS REPORT FOR: //name// CC: Maria Eugenia Coreas DATE OF SERVICE: 05/07/2019 CHIEF COMPLAINT: Chronic low back pain with spondylosis and radiculopathy and headache. HISTORY OF PRESENT ILLNESS: This is a 59-year-old female who returns to the pain clinic today for refill of her medications that she uses to help treat her ongoing low back pain and lumbar radiculopathy. Today, she is suffering from headache again as she did the last month that we saw her. She is going to see a neurologist on 05/14 for these temporal headaches that she is experiencing. She tells me though she has not had a headache since the last time she was here, her pain score today is a 4/10 in her back, a 10/10 in her head. This is a throbbing, radiating, shooting pain that she experiences in her lumbar spine down her legs. Working and standing aggravates her pain, but resting and using her medications are very beneficial. She denies any problems with constipation, if she does have issues, she takes an ixjw-iaq-pagtooz MiraLax. The patient tells me she recently moved, she was very active and busy with that and that did increase her pain some, but it is slowly getting back to normal since she is trying to get settled. She has been on vacation this week, so therefore her pain is also slightly better than average. ALLERGIES: PENICILLIN. CURRENT LIST OF MEDICATION: Hydrocodone 7.5/325 p.r.n., Zestril, Zanaflex 4 mg b.i.d., Lipitor 40 mg daily, aspirin 81 mg daily and Celexa 20 mg daily. PQRS: 1. The patient has osteoarthritis in her lower extremities. Denies any rheumatoid arthritis. 2. Height is 5 feet 4 inches, weight is 145, BMI is 25. 3. VITAL SIGNS: Blood signs 138/62, pulse is 63, respirations 16, oxygen sat is 98. 4. Pain score is 4/10. 5. Denies dizziness. She does not need help with walking or standing. She has not fallen in the last 3 months. 6. The patient is not on any blood thinners, does take medicine for hypertension. Her opioid therapy is greater than 6 weeks; therefore, an opioid signed contract is on the chart. Risk assessment tool is low. Functional assessment is . [address] [address] PAIN MANAGEMENT CONSULTATION Name: VON ALVARENGA Room #: REG KIRAN Castañeda#: [id number] Admission: 05/07/19 ������������������ Attend Phys: Maria Eugenia Jain Discharge: ������������������ Date of : 60 Report #: [id number] 7. The patient does not use recreational drugs. She is a former smoker and does not drink alcohol. We did check the prescription monitoring system. The patient is filling appropriately. She is early for her medications today, not due to be filled until 05/14/2019, but since she is on vacation, she is here today for her appointment. There is a recent drug screen on the chart as well. PHYSICAL EXAMINATION: GENERAL: This is a well-developed, well-nourished, well-hydrated 59-year-old female who appears her stated age, placing her current pain score at 4/10 in her back and 10/10 for her head pain. HEENT: Normocephalic, atraumatic. Extraocular eye muscles are intact. Mucous membranes are moist: The patient complains of a headache today in her right temporal area that just started when she woke up this morning. NECK: Without adenopathy or JVD. MUSCULOSKELETAL: The patient is able to move from sitting to standing without difficulty. She does walk with a slightly antalgic gait. She has pain that is across her lower back, follows the L5 dermatomal distribution down her right leg, into her calf. We reviewed the fact that opiate medications are being used to provide analgesia adequate to support activities of daily living, not attempting to achieve a specific pain score on the 0-10 Visual Analog Scale. The current opiate medications are providing sufficient analgesia to allow the patient to participate in activities of daily living. The patient is not exhibiting any aberrant behavior suggestive of drug diversion. The patient is not having any adverse reactions to medications. The patient is not suffering from daytime somnolence or mental acuity changes. The patient is managing opiate-induced constipation with appropriate vzzl-lst-wtaffto agents and dietary considerations. The patient was counseled on concern for caution with operating a motor vehicle while using opiate medications. A physical exam was performed and the patient's functional status was evaluated. All patients with back pain were advised against the bed rest greater than 4 days and were advised to return to normal activities. Pain score assessment was noted and the treatment plan was reviewed with the patient. All current medications, both prescribed and OTC were reviewed and reconciled on the electronic medical record. Tobacco screening was accomplished and smoking cessation was advised when indicated. BMI was noted and diet/exercise modification was recommended for all patients following outside normal parameters. I reviewed with the patient today their responsibilities to safeguard prescription medications, reviewed their responsibility to utilize medications only as prescribed by the physician. They are to seek and receive pain [facility] [address] [place] [address] PAIN MANAGEMENT CONSULTATION Name: VON ALVARENGA Room #: REG CL M.R.#: [id number] Admission: 05/07/19 ������������������ Attend Phys: Maria Eugenia Jain Discharge: ������������������ Date of : 60 Report #: [id number] medications only from 1 physician group ( [facility]). They are to use 1 pharmacy and keep the clinic informed if they change pharmacies. Their responsibilities include making followup visits in a timely fashion and to avoid abrupt discontinuation of medication usage. Their responsibilities further include bringing their medications (bottles from the pharmacy with residual pills) to the visit for possible confirmation of pill counts and the patient understands it is their responsibility to submit to random drug screens to ensure both that the medications prescribed are present, and that no other controlled substances are present. All prescriptions provided today were generated electronically. PLAN: 1. We discussed treatment options with the patient today. The patient is seeing her neurologist on the regarding her migraine headaches and then she is scheduled to have an MRI on 05/22. I encouraged her to speak with her neurologist if the MRI of her head is necessary. 2. Scripts given for her hydrocodone 7.5/325, #75, patient to fill on 05/14/2019. Scripts also given for her tizanidine 4 mg b.i.d., #60 with [address] Antonio Hicks did see the patient and collaborated care. The patient's current morphine milliequivalent is 18.75 per day, clearly below the CDC guidelines. The patient will follow up in 1 month for medication management. ��������������������������������������������� <ELECTRONICALLY SIGNED> ���������������������������������������� By: Maria Eugenia Jain ��������������������������������������������� 05/08/19 0813 [id number] Maria Eugenia Jain /nt
== END ==
LOC: PAIN 11:23
DX: M47.26 Other spondylosis with radiculopathy, lumbar region (principal); R51 Headache; G89.29 Other chronic pain

== ENCOUNTER → 2019-06-04 | Outpatient (CLI) | payer BC, OTHER ==
[~2019-06-04] VITALS: Ht 165.1 cm; Wt 67.9 kg
[2019-06-04 09:14] VITALS: BP 129/61
--- NOTE | 2019-06-04 09:19 | NUR ---
Pain Clinic Assessment: 1. History of Osteoarthritis: Not Applicable History of Rheumatoid Arthritis: Not Applicable 2. Height: 5 ft. 5 in. 165.1 cm. Weight: 149.6 lb. oz. 67.858 kg. Patient's BMI: 24.9 3. Vital Signs: BP: 129/61 Pulse: 65 Resp: 16 Temp: 02 Sat: 100 ECG Mon: 4. Pain Intensity: 5 5. Fall Risk: Dizziness: N Needs help standing or walking: N Fallen in the last 3 months: N Fall risk comments: 6. Patient on Blood Thinner: None 7. History of Hypertension: Y 8. Opioid Therapy greater than 6 weeks: Y Opiate Contract Signed: 12/05/15 9. Risk Assessment Tool Provided: LOW RISK 1 10. Functional Assessment Tool: 11. Recreational Drug Use: Never Drug Type: Tobacco Use: Former Smoker Tobacco Type: Amount or Packs/day: How Many Years: Alcohol Use: No Frequency: Quant:
--- NOTE | 2019-06-08 07:37 | HPC ---
[facility] [address] [place] [address] PAIN MANAGEMENT CONSULTATION Name: VON ALVARENGA Room #: REG Crissy Leslie.#: [id number] Admission: 06/04/19 Attend Phys: Maria Eugenia Jain Discharge: Date of : 60 Report #: [id number] THIS REPORT FOR: //name// CC: Maria Eugenia KNOWLES DATE OF SERVICE: 06/04/2019 CHIEF COMPLAINT: Chronic low back pain with spondylosis and radiculopathy. HISTORY OF PRESENT ILLNESS: This is a 59-year-old female who returns to the pain clinic today for refill of her medications that she uses to help treat her ongoing low back pain and lumbar radiculopathy. She reports a pain score of 5/10 today. She also reports to me that she has been out of her pain pills for about 4 days. She recently moved and was very active and required more pain medication. I did ask her if she gave her any medications and she tells me she did not that she took them all because she was physically active and busy along with her working schedule. She says the medications when she takes them are very beneficial. Today, she is complaining of increased pain in her right buttock that is radiating down her right leg as well as low back pain. She denies any problems with constipation. She tells me since she has been out of medications, she also has not experienced any withdrawal symptoms. ALLERGIES: PENICILLIN. CURRENT LIST OF MEDICATIONS: Tizanidine, hydrocodone 7.5/325 p.r.n., Zestril, Lipitor, aspirin, and Celexa. PQRS: 1. The patient has osteoarthritis in her lower extremities. Denies any rheumatoid arthritis. 2. Height is 5 feet 5 inches, weight is 149, BMI is 24. 3. Vital signs: 129/61, pulse is 65, respirations 16, oxygen sat is 100. 4. Pain score is 5/10. 5. Denies dizziness. Does not need help walking or standing, has not fallen in the last 3 months. 6. The patient is not on any blood thinners, does have a history of hypertension. 7. Opiate therapy is greater than 6 weeks; therefore, an opioid signed contract is on the chart. Her risk assessment tool is low. Functional assessment is . 8. Recreational drug use, she denies. She is a former smoker and does not drink alcohol. According to the prescription monitoring system, the patient filled her medications on the , which was several days early [place] [address] PAIN MANAGEMENT CONSULTATION Name: VON ALVARENGA Room #: REG [facility] Anuj.#: [id number] Admission: 06/04/19 Attend Phys: Maria Eugenia Jain Discharge: Date of : 60 Report #: [id number] 04/16/2019 and then currently already out of her medications. There is a drug screen on the chart in the last couple of months. The patient does tell me that she received a bill for a large amount. I instructed her to call the [employer] to discuss this bill. The patient again tells me she did not give her any medications and keeps them locked up. PHYSICAL EXAMINATION: GENERAL: This is a well-developed, well-nourished, well-hydrated 59-year-old female who appears her stated age, placing her current pain score at 5/10 today. HEENT: Normocephalic, atraumatic. Extraocular eye muscles are intact. Mucous membranes are moist. NECK: Without adenopathy or JVD. MUSCULOSKELETAL: The patient is able to move from sitting to standing without difficulty. Does complain of pain in her lower back that follows the L5 dermatomal distribution down into her right leg to her calf, also complain of increased right buttock pain today. The patient does walk with an antalgic gait. We reviewed the fact that opiate medications are being used to provide analgesia adequate to support activities of daily living, not attempting to achieve a specific pain score on the 0-10 Visual Analog Scale. The current opiate medications are providing sufficient analgesia to allow the patient to participate in activities of daily living. The patient is not exhibiting any aberrant behavior suggestive of drug diversion. The patient is not having any adverse reactions to medications. The patient is not suffering from daytime somnolence or mental acuity changes. The patient is managing opiate-induced constipation with appropriate ogml-hxs-gdzywlg agents and dietary considerations. The patient was counseled on concern for caution with operating a motor vehicle while using opiate medications. A physical exam was performed and the patient's functional status was evaluated. All patients with back pain were advised against the bed rest greater than 4 days and were advised to return to normal activities. Pain score assessment was noted and the treatment plan was reviewed with the patient. All current medications, both prescribed and OTC were reviewed and reconciled on the electronic medical record. Tobacco screening was accomplished and smoking cessation was advised when indicated. BMI was noted and diet/exercise modification was recommended for all patients following outside normal parameters. I reviewed with the patient today their responsibilities to safeguard prescription medications, reviewed their responsibility to utilize medications only as prescribed by the physician. They are to seek and receive pain medications only from 1 physician group ( [facility]). They are to use 1 pharmacy and keep the clinic informed if they change pharmacies. Their responsibilities include making followup visits in a timely fashion and to avoid [facility] [address] [place] [address] PAIN MANAGEMENT CONSULTATION Name: VON ALVARENGA Room #: REG KIRAN Castañeda#: [id number] Admission: 06/04/19 Attend Phys: Maria Eugenia AMAN Jain Discharge: Date of : 60 Report #: [id number] abrupt discontinuation of medication usage. Their responsibilities further include bringing their medications (bottles from the pharmacy with residual pills) to the visit for possible confirmation of pill counts and the patient understands it is their responsibility to submit to random drug screens to ensure both that the medications prescribed are present, and that no other controlled substances are present. All prescriptions provided today were generated electronically. PLAN: 1. We discussed treatment options with the patient again. We have had numerous discussions regarding her being out of medications early. I explained this to the patient again, she is alloted these per the month. She is not due to fill her medication until 06/09/2019, which we will date her prescription to fill at that time of hydrocodone 7.5/325, #75. She is already on a monthly appointment basis due to her early usage of her medications. I explained to the patient that she needs to take them as prescribed. We are unable to fill them early. These are monthly fills. The patient verbalizes understanding. Dr. Hicks had spoken with her in the past regarding her issues as well. We also talked about tapering her to 60 pills and the patient was informed of this again today. 2. The patient does not need any tizanidine today for her muscle relaxant, she has plenty of those and requires 1 tablet a day. They do cause some daytime sleepiness when she takes them. 3. The patient is seen in collaboration with Dr. Antonio Hicks. Appointment made for 1 month. <ELECTRONICALLY SIGNED> By: Maria Eugenia Jain 06/08/19 0737 [id number] [id number] Maria Eugenia Jain /nt
== END ==
LOC: PAIN 06-03 10:22
DX: M47.26 Other spondylosis with radiculopathy, lumbar region (principal); Z88.0 Allergy status to penicillin; Z79.899 Other long term (current) drug therapy; Z79.82 Long term (current) use of aspirin

== ENCOUNTER → 2019-07-09 | Outpatient (CLI) | payer BC, OTHER ==
[~2019-07-09] VITALS: Ht 165.1 cm; Wt 67.0 kg
[~2019-07-09] MED LIST changes: +ANUSOL-HC30 GM RECTAL
[2019-07-09 09:01] VITALS: BP 140/70
--- NOTE | 2019-07-09 09:13 | NUR ---
Pain Clinic Assessment: 1. History of Osteoarthritis: Not Applicable History of Rheumatoid Arthritis: Not Applicable 2. Height: 5 ft. 5 in. 165.1 cm. Weight: 147.6 lb. oz. 66.951 kg. Patient's BMI: 24.6 3. Vital Signs: BP: 140/70 Pulse: 67 Resp: 14 Temp: 02 Sat: 100 ECG Mon: 4. Pain Intensity: 6 5. Fall Risk: Dizziness: N Needs help standing or walking: N Fallen in the last 3 months: N Fall risk comments: 6. Patient on Blood Thinner: None 7. History of Hypertension: Y 8. Opioid Therapy greater than 6 weeks: Y Opiate Contract Signed: 12/05/15 9. Risk Assessment Tool Provided: LOW RISK 1 10. Functional Assessment Tool: 11. Recreational Drug Use: Never Drug Type: Tobacco Use: Former Smoker Tobacco Type: Amount or Packs/day: How Many Years: Alcohol Use: No Frequency: Quant:
--- NOTE | 2019-07-14 09:08 | HPC ---
[facility] [address] [place] [address] PAIN MANAGEMENT CONSULTATION Name: VON ALVARENGA Room #: REG KIRAN Castañeda#: [id number] Admission: 07/09/19 ������������������ Attend Phys: Maria Eugenia Jain Discharge: ������������������ Date of : 60 Report #: [id number] THIS REPORT FOR: //name// CC: Maria Eugenia Lloyd MD DATE OF SERVICE: 07/09/2019 CHIEF COMPLAINT: Chronic low back pain with spondylosis and radiculopathy. HISTORY OF PRESENT ILLNESS: This is a 59-year-old female who returns to the pain clinic today for a refill of her medications. She is on time for her medication refill today, rating her pain score of 6/10. She reports that it is mostly in her lower back and right leg. It is a throbbing, radiating pain that is worse when she is walking and working. Her medications have been very beneficial as well as cold and rest. She would like a refill of those medications today. The patient tells me she has been having problems with hemorrhoids, is going to see a surgeon in a couple of weeks. She tells me this is not a result of constipation. She is not constipated from her narcotics. She has had a longstanding history of hemorrhoids that have been getting worse. She verbalizes understanding that if she does have a hemorrhoidectomy, she is not to get any medications from her surgeon. ALLERGIES: PENICILLIN. CURRENT LIST OF MEDICATIONS: Hydrocodone 7.5/325, 2-3 times a day; tizanidine at bedtime; Zestril; Lipitor; aspirin; Celexa and Anusol. PQRS: 1. The patient has a history of osteoarthritis in her lower extremities. Denies any rheumatoid arthritis. 2. Height is 5 feet 5 inches, weight is 147, BMI is 24. 3. Vital signs, 140/70, pulse is 67, respirations 14, oxygen sat is 100. 4. Pain score 6/10. 5. Denies dizziness, does not need help walking or standing, has not fallen in the last 3 months. 6. The patient is not on any blood thinners, but does have a history of hypertension. 7. Opiate therapy is greater than 6 weeks; therefore, an opiate signed contract is on the chart. Risk assessment tool is low. Functional assessment is . 8. Recreational drug use, she denies. She is a former smoker and does not drink alcohol. [facility] [address] [place] [address] PAIN MANAGEMENT CONSULTATION Name: VON ALVARENGA Room #: REG CL Garry#: [id number] Admission: 07/09/19 ������������������ Attend Phys: Maria Eugenia Jain Discharge: ������������������ Date of : 60 Report #: [id number] According to the prescription monitoring system, the patient last filled on 06/09/2019, so she is due for her medication refill today. There are drug screens on the chart as well. PHYSICAL EXAMINATION: GENERAL: This is a well-developed, well-nourished, well-hydrated 59-year-old female who appears her stated age, placing her current pain score at 6/10. HEENT: Normocephalic, atraumatic. Extraocular eye muscles are intact. Mucous membranes are moist. NECK: Without adenopathy or JVD. MUSCULOSKELETAL: Complains of pain in her lumbar spine that radiates down the L5 dermatomal distribution on the right leg to her calf. She walks with an antalgic gait. She is able to move from sitting to standing without any difficulty, though. We reviewed the fact that opiate medications are being used to provide analgesia adequate to support activities of daily living, not attempting to achieve a specific pain score on the 0-10 Visual Analog Scale. The current opiate medications are providing sufficient analgesia to allow the patient to participate in activities of daily living. The patient is not exhibiting any aberrant behavior suggestive of drug diversion. The patient is not having any adverse reactions to medications. The patient is not suffering from daytime somnolence or mental acuity changes. The patient is managing opiate-induced constipation with appropriate pcge-klh-nvprrui agents and dietary considerations. The patient was counseled on concern for caution with operating a motor vehicle while using opiate medications. A physical exam was performed and the patient's functional status was evaluated. All patients with back pain were advised against the bed rest greater than 4 days and were advised to return to normal activities. Pain score assessment was noted and the treatment plan was reviewed with the patient. All current medications, both prescribed and OTC were reviewed and reconciled on the electronic medical record. Tobacco screening was accomplished and smoking cessation was advised when indicated. BMI was noted and diet/exercise modification was recommended for all patients following outside normal parameters. I reviewed with the patient today their responsibilities to safeguard prescription medications, reviewed their responsibility to utilize medications only as prescribed by the physician. They are to seek and receive pain medications only from 1 physician group ([facility]). They are to use 1 pharmacy and keep the clinic informed if they change pharmacies. Their responsibilities include making followup visits in a timely fashion and to avoid abrupt discontinuation of medication usage. Their responsibilities further include bringing their medications (bottles from the pharmacy with residual pills) to the visit for possible confirmation of pill counts and the patient [address] [address] PAIN MANAGEMENT CONSULTATION Name: VON ALVARENGA Room #: REG [facility].#: [id number] Admission: 07/09/19 ������������������ Attend Phys: Maria Eugenia Jain Discharge: ������������������ Date of : 60 Report #: [id number] understands it is their responsibility to submit to random drug screens to ensure both that the medications prescribed are present, and that no other controlled substances are present. All prescriptions provided today were generated electronically. IMPRESSION: 1. Chronic low back pain. 2. Lumbar radiculopathy with lumbar spondylosis. 3. Osteoarthritis in her knees and hips. 4. Management of high-risk medications under terms of written opioid agreement. PLAN: 1. We discussed treatment options with the patient today. The patient tells me that she is doing reasonably well with her lumbar back pain. She has been keeping her medications locked up and is on time for her medication, with no early refill needed or requesting medications early because she had taken them all. Scripts given today for hydrocodone 7.5/325, #75. This does place the patient at 22 morphine milliequivalents per day. 2. The patient has been having issues with hemorrhoids. She is on current medication of Anusol and is going to see her surgeon. We reminded the patient of her opioid contract and if she does have surgery that we can address her medication management for that postoperative period, but not to get medications from that surgeon or if she does, she is instructed to call us with the prescription. 3. The patient tells me that she is no longer having headaches like she had been suffering with for several months. 4. The patient will return in 1 month[address] App[address] made with Dr[address] Antonio Hicks who did see the patient today and collaborated care as well. ��������������������������������������������� <ELECTRONICALLY SIGNED> ���������������������������������������� By: Maria Eugenia Jain ��������������������������������������������� 07/14/19 0908 [id number] Maria Eugenia Jain /nt
== END ==
LOC: PAIN 07-08 10:23
DX: M47.26 Other spondylosis with radiculopathy, lumbar region (principal); M17.0 Bilateral primary osteoarthritis of knee; M16.0 Bilateral primary osteoarthritis of hip; Z79.82 Long term (current) use of aspirin; Z88.0 Allergy status to penicillin; Z79.899 Other long term (current) drug therapy

== ENCOUNTER → 2019-08-06 | Outpatient (CLI) | payer BC, OTHER ==
[~2019-08-06] VITALS: Ht 165.1 cm; Wt 70.1 kg
[~2019-08-06] MED LIST changes: +AMITRIPTYLINE H10 M1 PO; +HYDROCODONE-AP1 EA11 PO
--- NOTE | ~2019-08-06 | HPC ---
[facility] [place] [address] PAIN MANAGEMENT CONSULTATION Name: VON ALVARENGA Room #: REG KIRAN Anuj.#: [id number] Admission: 08/06/19 Attend Phys: Antonio Hicks MD Discharge: Date of : 60 Report #: [id number] THIS REPORT FOR: //name// CC: DR. CARMINA KNOWLES DATE OF SERVICE: 08/06/2019 Followup visit for chronic intractable pain. SUBJECTIVE: The patient returns to pain clinic today in followup for chronic pain. She is behind on her bill payment. She has been fired from work because of her inability to work with chronic pain and headaches. We agreed to see her today at a reduced cost and I provided her with a prescription for hydrocodone 7.5/325 #75 tablets. This should be used over the course of 1 month. I have initiated amitriptyline 10 mg at bedtime to be increased to 20 mg and then to 30 mg for treatment of chronic and recurring headaches. 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 I have stressed the importance of remaining active. She denies use of illegal substances, but has had drug screen that showed tramadol, oxycodone in combination with the hydrocodone that we prescribed for her. She was counseled. We discussed sending her for treatment of opioid use disorder today during her visit and also after her visit. She reports that the pain medication is helpful and allows to get through her day. Without it, she is unable to function. The fact that she has lost her job suggest that she is nonfunctional even with the medication. CURRENT MEDICATIONS: Hydrocodone 7.5 mg 2-3 times daily. Her MME is between 15 and 20. Citalopram 20 mg daily, tizanidine 4 mg at bedtime, lisinopril 5 mg daily, fluvastatin 40 mg daily, aspirin. ALLERGIES: PENICILLIN. PHYSICAL EXAMINATION: VITAL SIGNS: 5 feet 5, 154 pounds, BMI of 25.7, blood pressure 189/80, heart rate 61, respirations 16, O2 sat 100. GENERAL: Affect is depressed. She moves independently from sitting to standing position. Her gait is nonantalgic. HEENT: Reveals pupils to be equal, round, reactive to light. EOMs are intact. [address] [address] PAIN MANAGEMENT CONSULTATION Name: VON ALVARENGA Room #: REG [facility].#: [id number] Admission: 08/06/19 Attend Phys: Antonio Hicks MD Discharge: Date of : 60 Report #: [id number] Mucous membranes are moist. NECK: Supple. CHEST: Clear. CARDIAC: Rhythm is regular. ABDOMEN: Soft. Spine reveals tenderness across the lumbosacral segment reduced range of motion. Straight leg raising is negative. IMPRESSION: 1. Chronic low back pain with spondylosis and mild radicular features. 2. History of osteoarthritis. 3. Chronic headaches recently worsened with the stress of job loss. 4. Currently out of work, fired because of inability to maintain schedule. PLAN: 1. I renewed her medications. Encouraged her to get a job, which will be helpful for diversion and distraction. 2. We discussed non-medication pain management strategies including exercise and relaxation therapies. 3. Use of medications under terms of our opioid agreement. I reviewed the prescription drug monitoring information February through June and there are no unexpected entries in the [facility] information. We reviewed her important instructions to use medications only as prescribed by the clinic. We will otherwise send her to treatment for opioid use disorder. 4. She is responsible for her billing in the future. She was allowed to be seen today with a nominal fee, but we anticipate continued payment towards her required billing. By: [id number] Antonio Hicks MD /nt
[2019-08-06 09:09] VITALS: BP 189/80
--- NOTE | 2019-08-06 09:16 | NUR ---
Pain Clinic Assessment: 1. History of Osteoarthritis: BACK History of Rheumatoid Arthritis: Not Applicable 2. Height: 5 ft. 5 in. 165.1 cm. Weight: 154.6 lb. oz. 70.126 kg. Patient's BMI: 25.7 3. Vital Signs: BP: 189/80 Pulse: 61 Resp: 16 Temp: 02 Sat: 100 ECG Mon: 4. Pain Intensity: 5 5. Fall Risk: Dizziness: N Needs help standing or walking: N Fallen in the last 3 months: N Fall risk comments: 6. Patient on Blood Thinner: None 7. History of Hypertension: Y 8. Opioid Therapy greater than 6 weeks: Y Opiate Contract Signed: 12/05/15 9. Risk Assessment Tool Provided: LOW RISK 1 10. Functional Assessment Tool: 11. Recreational Drug Use: Never Drug Type: Tobacco Use: Former Smoker Tobacco Type: Amount or Packs/day: How Many Years: Alcohol Use: No Frequency: Quant:
== END ==
LOC: PAIN 06:52
DX: M47.26 Other spondylosis with radiculopathy, lumbar region (principal); M19.90 Unspecified osteoarthritis, unspecified site; Z88.8 Allergy status to other drugs, medicaments and biological substances; Z79.899 Other long term (current) drug therapy

== ENCOUNTER → 2019-09-03 | Outpatient (CLI) | payer OTHER ==
[~2019-09-03] VITALS: Ht 162.6 cm; Wt 68.5 kg
[2019-09-03 09:40] VITALS: BP 147/83
--- NOTE | 2019-09-03 09:45 | NUR ---
Pain Clinic Assessment: 1. History of Osteoarthritis: BACK History of Rheumatoid Arthritis: Not Applicable 2. Height: 5 ft. 4 in. 162.6 cm. Weight: 151.0 lb. oz. 68.493 kg. Patient's BMI: 25.9 3. Vital Signs: BP: 147/83 Pulse: 73 Resp: 16 Temp: 02 Sat: 97 ECG Mon: 4. Pain Intensity: 5-TODAY 5. Fall Risk: Dizziness: N Needs help standing or walking: N Fallen in the last 3 months: N Fall risk comments: 6. Patient on Blood Thinner: None 7. History of Hypertension: Y 8. Opioid Therapy greater than 6 weeks: Y Opiate Contract Signed: 12/05/15 9. Risk Assessment Tool Provided: LOW RISK 1 10. Functional Assessment Tool: 11. Recreational Drug Use: Never Drug Type: Tobacco Use: Former Smoker Tobacco Type: Amount or Packs/day: How Many Years: Alcohol Use: No Frequency: Quant:
--- NOTE | 2019-09-07 11:03 | HPC ---
[facility] [place] [address] PAIN MANAGEMENT CONSULTATION Name: VON ALVARENGA Room #: REG KIRAN Anuj.#: [id number] Admission: 09/03/19 Attend Phys: Maria Eugenia Jain Discharge: Date of : 60 Report #: [id number] THIS REPORT FOR: //name// CC: Maria Eugenia Lloyd MD DATE OF SERVICE: 09/03/2019 CHIEF COMPLAINT: Chronic intractable pain. HISTORY OF PRESENT ILLNESS: This is a 59-year-old female who returns to the pain clinic today for refill of her medications that she uses to help treat her ongoing low back pain and right leg pain. She also suffers from migraine headaches. She reports this pain score 5/10 today, which is an average score for her. 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 She reports that medication as well as hot showers or ice are beneficial. The patient complained of daytime sleepiness, hungover feeling from amitriptyline, though she was taking it very intermittent, not on a nightly basis. She has not taken it for several days. She continues to have migraines and she also does not suffer from constipation issues from her medicine. ALLERGIES: PENICILLIN. CURRENT LIST OF MEDICATIONS: Amitriptyline, hydrocodone 7.5/325 b.i.d. p.r.n., Anusol cream p.r.n., lisinopril 5 mg daily, atorvastatin 40 mg daily, aspirin 81 mg daily, Celexa 20 mg daily. PQRS: 1. She reports a history of osteoarthritis in her lumbar spine. Denies any rheumatoid arthritis. 2. Height is 5 feet 4 inches, weight is 151. BMI is 25. 3. Vital signs 147/83, pulse is 73, respirations 16, oxygen sat is 97. 4. Pain score is 5/10. 5. Denies dizziness, does not need help walking or standing, has not fallen in the last 3 months. 6. The patient is not on any blood thinners, but does take medicine for hypertension. 7. Opioid therapy is greater than 6 weeks; therefore, an opiate signed contract is on the chart. Risk assessment tool is low. Functional assessment is . 8. Recreational drug use, she denies. She is a [place] [address] PAIN MANAGEMENT CONSULTATION Name: VON ALVARENGA Room #: REG Crissy Castañeda#: [id number] Admission: 09/03/19 Attend Phys: Maria Eugenia Jain Discharge: Date of : 60 Report #: [id number] drink alcohol. According to the prescription monitoring system, the patient is filling appropriately on her medications in a timely fashion. She reports she is safeguarding her medications. There is a recent drug screen that is on the chart as well. PHYSICAL EXAMINATION: GENERAL: This is alert and orientated 59-year-old female who appears her stated age, placing her current pain score at 5/10 today. HEENT: Pupils equal, round and reactive to light. EOMs are intact. Mucous membranes are moist. MUSCULOSKELETAL: Her gait is nonantalgic. She moves independently from sitting to standing position. She has tenderness in the lumbosacral segment with reduced range of motion. Straight leg raising is negative. Lower extremity strength judged to be 5/5 in all major muscle groups. IMPRESSION: 1. Chronic low back pain with spondylosis and lumbar radiculopathy features. 2. History of osteoarthritis. 3. Chronic headaches. 4. Management of high risk medications under terms of written opioid agreement. We reviewed the fact that opiate medications are being used to provide analgesia adequate to support activities of daily living, not attempting to achieve a specific pain score on the 0-10 Visual Analog Scale. The current opiate medications are providing sufficient analgesia to allow the patient to participate in activities of daily living. The patient is not exhibiting any aberrant behavior suggestive of drug diversion. The patient is not having any adverse reactions to medications. The patient is not suffering from daytime somnolence or mental acuity changes. The patient is managing opiate-induced constipation with appropriate [id number] agents and dietary considerations. The patient was counseled on concern for caution with operating a motor vehicle while using opiate medications. A physical exam was performed and the patient's functional status was evaluated. All patients with back pain were advised against the bed rest greater than 4 days and were advised to return to normal activities. Pain score assessment was noted and the treatment plan was reviewed with the patient. All current medications, both prescribed and OTC were reviewed and reconciled on the electronic medical record. Tobacco screening was accomplished and smoking cessation was advised when indicated. BMI was noted and diet/exercise modification was recommended for all patients following outside normal parameters. I reviewed with the patient today their responsibilities to [facility] [address] [address] PAIN MANAGEMENT CONSULTATION Name: VON ALVARENGA Room #: REG KIRAN Castañeda#: [id number] Admission: 09/03/19 Attend Phys: Maria Eugenia Jain Discharge: Date of : 60 Report #: [id number] prescription medications, reviewed their responsibility to utilize medications only as prescribed by the physician. They are to seek and receive pain medications only from 1 physician group ( [facility]). They are to use 1 pharmacy and keep the clinic informed if they change pharmacies. Their responsibilities include making followup visits in a timely fashion and to avoid abrupt discontinuation of medication usage. Their responsibilities further include bringing their medications (bottles from the pharmacy with residual pills) to the visit for possible confirmation of pill counts and the patient understands it is their responsibility to submit to random drug screens to ensure both that the medications prescribed are present, and that no other controlled substances are present. All prescriptions provided today were generated electronically. PLAN: 1. We discussed treatment options with the patient today. 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 She finds that hydrocodone very beneficial in helping her work and perform duties at home. 2. Scripts given today for hydrocodone 7.5 b.i.d., #75 for today and 4-week release. 3. We did explain to the patient that we will giving her a trial of 2 months of medications. We have been seeing her on a monthly basis for a significant amount of time. She has not had any red flags in the past few months. We explained to her that 75 pills is 1 month of medications. She is to keep them for herself only, not sure that they will keep them safeguarded at all times. Fill appropriately. If she is able to do this for the next 2 months, we will continue her on a bimonthly basis. The patient verbalizes understanding. 4. According to the CDC guidelines, her morphine mEq per day is 22. 5. The patient complained of daytime hungover somnolence from her Elavil. I encouraged the patient to take it slightly earlier before bedtime and also hopefully the symptoms subside the longer she is on it. She only took the medication as needed per her report. I encouraged her to take it every night for at least a week and see how she is doing, starting her first dose other day, she does not work the next day. The patient verbalizes understanding. I explained to her, we will call in medicines for this if she finds she is taking 20 mg at night or 30 mg at night. 6. Dr. Antonio Hicks did see the patient with me today and collaborated care. <ELECTRONICALLY SIGNED> By: Maria Eugenia Jain 09/07/19 [id number] Maria Eugenia Jain /rosetta
== END ==
LOC: PAIN 06:55
DX: M47.26 Other spondylosis with radiculopathy, lumbar region (principal); M19.90 Unspecified osteoarthritis, unspecified site; R51 Headache; Z79.891 Long term (current) use of opiate analgesic

== ENCOUNTER 2021-04-12 20:45 | Emergency (ER) | payer BC, OTHER ==
[~2021-04-12] VITALS: Ht 162.6 cm; Wt 68.0 kg
[2021-04-12 21:41] LABS: ABSOLUTE NEUTROPHILS 4.5 thou/uL (1.4-8.2); BASOPHILS 0.5 % (0.0-2.0); EOSINOPHILS 0.7 % (0.0-3.0); HEMATOCRIT 37.7 % (37.0-47.0); HEMOGLOBIN 12.5 gm/dL (12.0-15.0); LYMPHOCYTES 23.3 % (24.0-44.0); MCH 28.7 pg (26.0-34.0); MCHC 33.3 g/dL (28.0-37.0); MCV 86.2 fL (80.0-100.0); PLATELET COUNT 152 thou/uL (150-400); POLYS 70.5 % (36.0-66.0); RBC 4.37 mil/uL (4.20-5.00); RDW 13.7 % (10.5-14.5); WBC 6.4 thou/uL (4.0-11.0)
[2021-04-12 21:45] LABS: CALCIUM 9.4 mg/dL (8.5-10.1); CREATININE 1.1 mg/dL (0.6-1.0); POTASSIUM 4.1 mmol/L (3.5-5.1)
[2021-04-12 21:50] LABS: ALBUMIN 4.2 g/dL (3.4-5.0); DIRECT BILIRUBIN 0.2 mg/dL (<0.1-0.2); TOTAL BILIRUBIN 0.9 mg/dL (0.2-1.0); TOTAL PROTEIN 7.4 g/dL (6.4-8.2)
[2021-04-12 21:55] LABS: URINE BILIRUBIN NEGATIVE (Negative); URINE BLOOD NEGATIVE (Negative); URINE CLARITY CLEAR; URINE COLOR YELLOW; URINE GLUCOSE-RANDOM* NEGATIVE (Negative); URINE KETONES NEGATIVE (Negative); URINE LEUKOCYTES-REFLEX NEGATIVE (Negative); URINE NITRITE-REFLEX NEGATIVE (Negative); URINE PROTEIN (DIPSTICK) TRACE (Negative); URINE SPECIFIC GRAVITY 1.015 (1.005-1.035)
[2021-04-12] MEDS ORDERED: ZOFRAN ODT4 MG PO (23:40)
[2021-04-12] MEDS ORDERED: LEVSIN-SL0.125 MG PO (23:41)
[2021-04-12 23:47] VITALS: BP 119/46
== END 2021-04-12 23:50 | disposition home or self-care (01) ==
LOC: ER 20:45
PROVIDERS: Nurse Practitioner
DX: R10.32 Left lower quadrant pain (principal); R11.2 Nausea with vomiting, unspecified; G89.29 Other chronic pain; I10 Essential (primary) hypertension; E78.5 Hyperlipidemia, unspecified; Z87.891 Personal history of nicotine dependence; Z88.0 Allergy status to penicillin; Z79.82 Long term (current) use of aspirin; Z79.899 Other long term (current) drug therapy; Z90.49 Acquired absence of other specified parts of digestive tract